=== PATIENT | female | born 1985 | race Caucasian/White ===

== ENCOUNTER 2022-07-06 05:02 | Emergency (ER) | payer SELFPAY ==
[2022-07-06 05:14] VITALS: BP 113/75; PULSE 70; RESP 16; TEMP 37.1; O2SAT 98
[2022-07-06] MEDS: KETOROLAC 15 MG/ML inj IVP (05:40)
[2022-07-06 05:46] LABS: Appearance Urine Clear (Clear); Bilirubin Urine Negative (Negative); Blood Urine Trace-intact (Negative); Color Urine Yellow (Yellow); Glucose Urine Negative (Negative); Ketones Urine Negative (Negative); Leukocyte Esterase Urine Negative (Negative); Nitrite Urine Negative (Negative); Protein Urine Negative (Negative); Specific Gravity Urine 1.015 (1.000-1.030); Urobilinogen Urine 0.2 (0.2-1.0)
[2022-07-06 05:48] LABS: Basophils Percent Auto 0.2 % (0.0-3.0); Eosinophils Percent Auto 0.9 % (0.0-7.0); Immature Granulocytes Abs Auto 0.02 K/uL (0.00-0.30); Lymphocytes Percent Auto 19.9 % (20-44); Mean Corpuscular HGB Conc 34 gm/dL (32-36); Mean Corpuscular Hemoglobin 30 pg (26-34); Mean Corpuscular Volume 89 fL (80-100); Monocytes Percent Auto 6.1 % (0.0-11.0); Neutrophils Percent Auto 72.8 % (42.0-72.0); Platelet Count* 340 K/uL (140-440); RDW Coefficient of Variation % 12.4 % (11.5-15.5); Red Blood Count 4.29 m/uL (4.00-5.20); White Blood Count* 15.31 K/uL (4.50-11.00)
[2022-07-06 05:53] LABS: Bacteria Urine Few; HCG Qualitative* Negative (Negative); RBC Urine 0-2 (0-2); Squamous Epithelial Cell Urine Few (None-Few); WBC Urine 0-2 (0-5)
[2022-07-06 06:00] LABS: Albumin* 4.4 g/dL (3.3-5.0); Chloride* 103 mmol/L (96-114)
[2022-07-06 06:01] LABS: Potassium* 3.6 mmol/L (3.6-5.1); Sodium* 136 mmol/L (135-149)
[2022-07-06 06:03] LABS: Alkaline Phosphatase* 142 U/L (40-150); Aspartate Amino Transferase* 72 U/L (12-35); Bilirubin Total* 0.3 mg/dL (0.1-1.5); Carbon Dioxide* 24 mmol/L (20-32); Creatinine* 0.6 mg/dL (0.5-1.5); Estimated Glomerular Filt Rate 120 ml/min; Lipase* 77 U/L (23-300); Total Protein* 7.2 g/dL (6.0-8.3)
[2022-07-06 06:04] LABS: Alanine Aminotransferase* 53 U/L (4-35); Blood Urea Nitrogen* 20 mg/dL (5-24); Calcium* 8.5 mg/dL (8.4-10.6); Glucose* 101 mg/dL (60-115)
[2022-07-06 06:06] LABS: C Reactive Protein* 2.3 mg/dL (0.5-1.0)
--- NOTE | 2022-07-06 06:08 | CRLHL7_ITS ---
For Patients: As a result of the Century Cures Act, medical imaging exams and procedure reports are released immediately into your electronic medical record. You may view this report before your referring provider. If you have questions, please contact your health care provider. INDICATION: Pelvic pain with history of ovarian cysts. COMPARISON: There are no prior studies for comparison TECHNIQUE: CT examination of the abdomen and pelvis was performed following the uneventful intravenous administration of 53 cc of Isovue 370. Thin section axial images were obtained from the lung bases through the pubic symphysis. Oral contrast was not administered. Please note that all CT scans at this facility use dose modulation, iterative reconstruction, and/or weight-based dosing when appropriate to reduce radiation dose to as low as reasonably achievable. FINDINGS: LUNG BASES: The lung bases as visualized appear normal.The heart size is normal at the lung bases. LIVER/BILIARY SYSTEM:The liver is normal in size and configuration. There is no focal mass and there is no intra- or extra hepatic biliary ductal dilatation.The gall bladder appears normal. ADRENALS: Normal KIDNEYS, URETERS and BLADDER:The kidneys appear normal. No visible mass, calculus or hydronephrosis. The ureters and bladder as visualized appear normal. SPLEEN:Normal appearance. PANCREAS: Appears normal. RETROPERITONEUM and MESENTERY: There is no mass, adenopathy or aortic aneurysm. GASTROINTESTINAL SYSTEM: Acute uncomplicated sigmoid diverticulitis. The loop that is involved is located deep in the pelvis towards the left. There is mild regional fluid. No collection free air. Appendix was seen and appears normal. PELVIS: Myomatous uterus..No adnexal mass identified by CT OSSEOUS STRUCTURES and ABDOMINAL WALL: There is an age-appropriate appearance of the osseous structures.No significant abdominal wall defect. IMPRESSION: Acute uncomplicated sigmoid diverticulitis. Other nonacute appearing findings as above. Please note that all CT scans at this facility use dose modulation, iterative reconstruction, and/or weight-based dosing when appropriate to reduce radiation dose to as low as reasonably achievable. Dictated by Carroll Skinner MD @ 07/06/2022 7:32:58 AM (Electronically Signed)
[2022-07-06 06:14] LABS: Slide Review Reflex No
--- NOTE | 2022-07-06 06:18 | ED.ABDPAIN ---
HPI - Abdominal Pain General Chief Complaint: Abdominal Pain Stated Complaint: Stomach ache Time Seen by Provider: 07/06/22 05:06 Source: patient and grain elevator worker Mode of arrival: ambulatory Limitations: language barrier History of Present Illness HPI narrative: 36-year-old female presents with a 9 hour history of suprapubic/pelvic area abdominal pain, constant, rating it as 9/10. Not accompanied by nausea, vomiting, diarrhea. Last bowel movement was 3 hours ago, solid, uncomplicated. Denies any blood in her stools, no dysuria, no vaginal discharge. Denies hematuria, fevers. Does feel sweaty when the pain is worse. She is mildly nauseated but denies any vomiting. She tried taking some Tylenol with no significant improvement in her symptoms. The pain radiates to both hips. No flank pain. Last menstrual period was 06/21/2022. It is not affected by food. Pain is similar to when she was diagnosed with ovarian cysts in the past. No recent trauma or injury. Past medical history she states is benign, no major long-term health problems, no long-term medications, no allergies. Her surgical history is notable for 3 prior C-sections. Socially, nonsmoker, no recent pertinent travel or illicit substances. ROS is notable for the intra-abdominal symptoms as above, otherwise negative times 12 systems. Related Data Previous Rx's Medication Instructions Recorded levofloxacin 500 mg tablet 500 mg PO DAILY #10 tabs 07/06/22 metronidazole 500 mg tablet 500 mg PO Q12H #20 tabs 07/06/22 oxycodone 5 mg tablet 2.5 - 5 mg PO Q6H PRN Severe pain 07/06/22 not relieved by Tylenol or ibuprofen #10 tabs Allergies Allergy/AdvReac Type Severity Reaction Status Date / Time No Known Drug Allergies Allergy Verified 07/06/22 05:16 [facility] Social History Smoking Status: Never smoker Do you use any of these nicotine containing products: None How often do you have a drink containing alcohol: never AUDIT-C Alcohol total score: 0 Non-prescribed substance use: denies use Exam Const: Vital Signs, click to edit/add: Vital Signs - 24 hr 07/06/22 05:14 07/06/22 07:48 Temperature 98.7 F Pulse Rate [Left P ulse Oximeter] 70 67 Respiratory Rate 16 18 Blood Pressure [[place] Upper Arm] 113/75 108/65 Pulse Oximetry 98 99 Oxygen Delivery Me thod Room Air Documenting provider has reviewed patient's vital signs: yes Common normals: no apparent distress General appearance: cooperative HENMT: Common normals: normocephalic Head and scalp: normocephalic Mouth: oral and palatal mucosa normal Throat: posterior oropharynx normal Eye: Common normals: conjunctivae normal and no scleral icterus Conjunctiva: conjunctiva(e) normal Neck & C-Spine: Common normals: full ROM and no lymphadenopathy Resp: Common normals: normal respiratory effort, no use of accessory muscles and clear to auscultation bilaterally Effort & inspection: able to speak in complete sentences Auscultation: clear to auscultation bilaterally Cardio: Common normals: regular rhythm, S1 normal heart sound, S2 normal heart sound, no murmurs and peripheral pulses 2+ throughout Rhythm: regular rhythm Heart sounds: S1 normal and S2 normal Peripheral pulses: pulses 2+ throughout GI: Other: Abdomen appears nondistended. Bowel sounds are normoactive. She is exquisitely tender to palpation of the suprapubic, right and left lower quadrants. There is no guarding. No mass, no hernia, no hepatosplenomegaly. : Common normals: no CVA tenderness Bladder/kidney exam: no CVA tenderness Back & Pelvis: Common normals: no CVA tenderness Extremity: Common normals: normal to inspection, normal capillary refill and no pedal edema Neuro: Speech: speech normal Motor exam: no tremor noted and no movement abnormalities noted Psych: Common normals: speech normal Attitude: engaged Speech: normal speech Mood and affect: euthymic mood Insight: insight good Judgement: judgment good Skin: Common normals: no rashes or lesions noted General skin exam: no rashes or lesions noted Course Vital Signs Vital signs: Initial Vital Signs Temperature 98.7 F 07/06/22 05:14 Temperature Source Temporal Artery Scan 07/06/22 05:14 Pulse Rate 70 07/06/22 05:14 Pulse Rhythm 07/06/22 05:14 Respiratory Rate 16 07/06/22 05:14 Blood Pressure 113/75 07/06/22 05:14 Blood Pressure Mean 87 07/06/22 05:14 Blood Pressure Position Sitting 07/06/22 05:14 Pulse Oximetry 98 07/06/22 05:14 Oxygen Delivery Method 07/06/22 05:14 Vital Signs Temperature 98.7 F 07/06/22 05:14 Pulse Rate 70 07/06/22 05:14 Respiratory Rate 16 07/06/22 05:14 Blood Pressure 113/75 07/06/22 05:14 Pulse Oximetry 98 07/06/22 05:14 Oxygen Delivery Method 07/06/22 05:14 Temperature 98.7 F 07/06/22 05:14 Pulse Rate 67 07/06/22 07:48 Respiratory Rate 18 07/06/22 07:48 Blood Pressure 108/65 07/06/22 07:48 Pulse Oximetry 99 07/06/22 07:48 Oxygen Delivery Method 07/06/22 05:14 MDM - Abdominal Pain MDM Narrative Medical decision making narrative: Negative test reviewed. Differential diagnoses including diverticulitis, appendicitis, ovarian torsion, ovarian cyst, pelvic infection, bowel obstruction, incarcerated hernia, volvulus, multiple others. IV will be placed she will be given 15 mg of Toradol. Trace amount of blood noted in the urine, uncertain clinical significance. Still low risk for renal stone. Labs ordered, CT scan ordered. Await findings. CT scan findings reviewed, notable for uncomplicated acute diverticulitis per Radiology interpretation. In patient on levofloxacin and metronidazole, discharge plan discussed. She reports that her pain was not adequately controlled with the Toradol, will be given 5 mg of oral oxycodone. Risks and benefits discussed with patient. Discussed the need for an outpatient colonoscopy in 6 weeks and follow up with primary care provider in 2 days to determine if the plan of care is working. Discussed the chance of antibiotic failure, fevers, signs of sepsis, weakness, etc. would warrant earlier repeat evaluation. She verbalizes understanding and agreement Differential Diagnosis Differential diagnosis: Likely abdominal pain, acute appendicitis, calculus of kidney, constipation, diverticulitis, endometriosis, gastroenteritis, pancreatitis and small bowel obstruction Lab Data Attestation: I reviewed the patient's lab results. Labs: Lab Results 07/06/22 07/06/22 07/06/22 Range/Units 05:35 05:43 05:43 WBC 15.31 H (4.50-11.00) K/uL RBC 4.29 (4.00-5.20) m/uL Hgb 13.0 (12.0-16.0) gm/dL Hct 38.0 (33.0-51.0) % MCV 89 (80-100) fL MCH 30 (26-34) pg MCHC 34 (32-36) gm/dL RDW Coeff of René 12.4 (11.5-15.5) % Plt Count 340 (140-440) K/uL Neut % (Auto) 72.8 H (42.0-72.0) % Lymph % (Auto) 19.9 L (20-44) % [place] % (Auto) 6.1 (0.0-11.0) % Eos % (Auto) 0.9 (0.0-7.0) % Baso % (Auto) 0.2 (0.0-3.0) % Neut # (Auto) 11.10 H (1.7-7.0) K/uL Lymph # (Auto) 3.00 H (0.90-2.90) K/uL [place] # (Auto) 0.90 (0.00-0.90) K/UL Eos # (Auto) 0.10 (0.00-0.50) K/uL Baso # (Auto) 0.00 (0.00-0.30) K/uL Abs Immat Gran (auto) 0.02 (0.00-0.30) K/uL Sodium 136 (135-149) mmol/L Potassium 3.6 (3.6-5.1) mmol/L Chloride 103 (96-114) mmol/L Carbon Dioxide 24 (20-32) mmol/L BUN 20 (5-24) mg/dL Creatinine 0.6 (0.5-1.5) mg/dL Estimated GFR 120 ml/min Glucose 101 (60-115) mg/dL Calcium 8.5 (8.4-10.6) mg/dL Total Bilirubin 0.3 (0.1-1.5) mg/dL AST 72 H (12-35) U/L ALT 53 H (4-35) U/L Alkaline Phosphatase 142 (40-150) U/L C-Reactive Protein 2.3 H (0.5-1.0) mg/dL Total Protein 7.2 (6.0-8.3) g/dL Albumin 4.4 (3.3-5.0) g/dL Lipase 77 (23-300) U/L HCG, Qual Negative (Negative) Urine Color Yellow (Yellow) Urine Appearance Clear (Clear) Urine pH 6.0 (5.0-8.5) Ur Specific [place] 1.015 (1.000-1.030) Urine Protein Negative (Negative) Urine Glucose (UA) Negative (Negative) Urine Ketones Negative (Negative) Urine Blood Trace-intact A (Negative) Urine Nitrite Negative (Negative) Urine Bilirubin Negative (Negative) Urine Urobilinogen 0.2 (0.2-1.0) Ur Leukocyte Esterase Negative (Negative) Urine RBC 0-2 (0-2) Urine WBC 0-2 (0-5) Ur Squamous Epith Cells Few (None-Few) Urine Bacteria Few A (None) Discharge Plan Discharge Clinical Impression: Diverticulitis Patient Disposition: Home w/ Parent or Adult Condition: Improved Instructions: Diverticulitis (ED) Additional Instructions: You have an infection in your lower colon Called diverticulitis. This is a common infection. Occasionally, it does feel to respond to oral antibiotics and may need more aggressive treatment. Signs of this would be persistent fevers, severe pain, vomiting or severe weakness and a couple of days from now. I would like to start you on 2 antibiotics, levofloxacin and metronidazole. Please make a followup appointment with her primary care provider in 3-4 days. For recheck. Your primary care provider will also need to set you up for a colonoscopy in 6 weeks to look to make sure and there is not a more dangerous etiology for your diverticulitis. It is okay to take Tylenol and ibuprofen as needed for pain, in fact we would prefer that you do this. I will also give you a limited supply of oxycodone to use for severe pain if needed but please try to use these sparingly. They have significantly more side effects as we discussed. Come back to the ED if you are having severe fever, weakness or severe increase in pain. Activity Level: No strenuous activity Activity Detail: No work today or tomorrow, may return to as normal on Wednesday. Discharge Diet: Regular Prescriptions: New levofloxacin 500 mg tablet 500 mg PO DAILY Qty: 10 0RF Rx Instructions: Begin morning of 07/07/2022 metronidazole 500 mg tablet 500 mg PO Q12H Qty: 20 0RF Rx Instructions: Next dose 07/06/2022 evening oxycodone 5 mg tablet 2.5 - 5 mg PO Q6H PRN (Reason: Severe pain not relieved by Tylenol or ibuprofen) Qty: 10 0RF Follow Up/Referrals: Ana Maria Hair MD [Primary Care Provider] - 2 Days Stand Alone Forms: SeeChange Health Info Instructions
[2022-07-06 07:48] VITALS: BP 108/65; PULSE 67; RESP 18; O2SAT 99
--- NOTE | 2022-07-06 07:49 | ED.NURSE ---
care taken over, pt back from ct. grave digger used to assess pt. pt denies pain at this time. states it comes and goes. dr. navarrete in seeing pt while grave digger on ipad.
[2022-07-06] MEDS: OXYCODONE 5 MG TABLET PO (08:02)
[2022-07-06] MEDS: levoFLOXacin 500 MG TABLET PO (08:02)
[2022-07-06] MEDS: metroNIDAZOLE 500 MG TABLET PO (08:03)
--- NOTE | 2022-07-06 08:12 | ED.NURSE ---
dc teaching complete via tax map technician ipad
== END 2022-07-06 08:12 | disposition home or self-care (01) ==
PROVIDERS: Emergency Provider Family Medicine; PCP Family Medicine
DX: K57.92 Diverticulitis of intestine, part unspecified, without perforation or abscess without bleeding (principal)
CPT/HCPCS: 36415; 74177; 80053; 81003; 81015; 83690; 84703; 85025; 86140; 87086; 96374; 99283; 99284; A9270; J1885; Q9967

== ENCOUNTER 2022-11-30 23:26 | Inpatient (IN) | payer SELFPAY ==
[2022-11-30 23:34] VITALS: BP 129/85; PULSE 91; RESP 16; TEMP 37.1; O2SAT 98
[2022-12-01] VITALS (7 sets, daily range): BP systolic 95–129; BP diastolic 57–85; PULSE 67–89; RESP 16–20; TEMP 36.4–36.9; O2SAT 97–99
--- NOTE | 2022-12-01 00:22 | ED.GENADULT ---
HPI - General Adult General Chief complaint: Abdominal Pain Stated complaint: Abdominal pain Time Seen by Provider: 12/01/22 00:05 Source: patient and family Mode of arrival: ambulatory Limitations: language barrier (Phone customer service manager used) History of Present Illness HPI narrative: 37-year-old female presents the emergency department suprapubic and bilateral lower abdominal pain for the past 3 days, worsening in nature. It is accompanied by nausea but no vomiting. Pain is increased with sitting down, with bearing down to have a bowel movement, urination. Does not really radiate. She is having some chills, body aches and headache but has not measured a fever. There is no dysuria, no vaginal discharge, no new sexual partners. Episode feel similar to pain she had in June. I review our records and see that she was diagnosed with diverticulitis. She reports that the antibiotics cleared up her infection but she did not scheduled a follow-up colonoscopy that was recommended. No problems since that time. She does have a history of GI surgery with 3 previous C-sections. She has a tubal for contraception. Had initially been using Tylenol with some improvement in her pain, no longer using since that did not help for the last 24 hours. Has not tried ibuprofen or Aleve. Past medical history with no major long-term health problems. She has had 3 previous C-sections and tubal ligation. Previous episode of diverticulitis in June. Socially she is a nonsmoker nondrinker with no pertinent travel. Family history is negative for colon cancers, stomach cancers, gynecological cancers and pancreatitis. Denies allergies ROS is notable for the generalized and GI symptoms as above, otherwise denies times 12 systems. Related Data Home Medications Medication Instructions Recorded Confirmed acetaminophen 500 mg capsule 500 mg PO Q6H PRN 11/30/22 11/30/22 Allergies Allergy/AdvReac Type Severity Reaction Status Date / Time No Known Drug Allergies Allergy Verified 07/06/22 05:16 [facility] Social History Smoking Status: Never smoker Do you use any of these nicotine containing products: None How often do you have a drink containing alcohol: never AUDIT-C Alcohol total score: 0 Non-prescribed substance use: denies use Exam Const: Vital Signs, click to edit/add: Vital Signs - 24 hr 11/30/22 23:34 Temperature 98.8 F Pulse Rate [Pulse Oximeter] 91 Respiratory Rate 16 Blood Pressure [[facility] Upper Arm] 129/85 Pulse Oximetry 98 Oxygen Delivery Me thod Room Air Documenting provider has reviewed patient's vital signs: yes Common normals: no apparent distress General appearance: cooperative Other: Appears mildly uncomfortable but is very pleasant, excellent historian. HENMT: Common normals: normocephalic Head and scalp: normocephalic Face and sinus: normal facial exam Mouth: oral and palatal mucosa normal Throat: posterior oropharynx normal Eye: Common normals: conjunctivae normal General eye: normal appearance of both eyes Conjunctiva: conjunctiva(e) normal Neck & C-Spine: Common normals: full ROM and no lymphadenopathy Resp: Common normals: normal respiratory effort, no use of accessory muscles and clear to auscultation bilaterally Effort & inspection: able to speak in complete sentences Auscultation: clear to auscultation bilaterally Cardio: Common normals: regular rate, regular rhythm, S1 normal heart sound, S2 normal heart sound, no murmurs and peripheral pulses 2+ throughout Rate: regular rate Rhythm: regular rhythm Heart sounds: S1 normal and S2 normal Peripheral pulses: pulses 2+ throughout GI: Other: Abdomen does not appear distended. Surgical scarring is consistent with the reported history. She is exquisitely tender in the suprapubic and left lower quadrant areas. There is some mild guarding as well. I do not appreciate any hepatosplenomegaly or masses. No hernia. : Common normals: no CVA tenderness Bladder/kidney exam: no CVA tenderness Back & Pelvis: Common normals: no CVA tenderness Extremity: Common normals: normal to inspection, normal capillary refill and no pedal edema Neuro: Speech: speech normal Motor exam: strength 5/5 throughout, no tremor noted and no movement abnormalities noted Psych: Attitude: engaged Activity/motor behavior: appropriate eye contact Insight: insight good Judgement: judgment good Skin: Common normals: no rashes or lesions noted General skin exam: no rashes or lesions noted Course Vital Signs Vital signs: Initial Vital Signs Temperature 98.8 F 11/30/22 23:34 Temperature Source Temporal Artery Scan 11/30/22 23:34 Pulse Rate 91 11/30/22 23:34 Pulse Rhythm Regular 11/30/22 23:34 Respiratory Rate 16 11/30/22 23:34 Blood Pressure 129/85 11/30/22 23:34 Blood Pressure Mean 99 11/30/22 23:34 Pulse Oximetry 98 11/30/22 23:34 Oxygen Delivery Method Room Air 11/30/22 23:34 Vital Signs Temperature 98.8 F 11/30/22 23:34 Pulse Rate 91 11/30/22 23:34 Respiratory Rate 16 11/30/22 23:34 Blood Pressure 129/85 11/30/22 23:34 Pulse Oximetry 98 11/30/22 23:34 Oxygen Delivery Method Room Air 11/30/22 23:34 Temperature 98.8 F 11/30/22 23:34 Pulse Rate 91 11/30/22 23:34 Respiratory Rate 16 11/30/22 23:34 Blood Pressure 129/85 11/30/22 23:34 Pulse Oximetry 98 11/30/22 23:34 Oxygen Delivery Method Room Air 11/30/22 23:34 Medical Decision Making MDM Narrative Medical decision making narrative: Different diagnosis highest for diverticulitis, cannot exclude colitis, ovarian cyst, kidney stone, UTI, other GI abnormalities. I recommended CT scan, labs. Because of her poor oral intake the last few days, will bolus 1 L of LR and 4 mg of Zofran with 15 mg of Toradol for additional pain control. Can increased pain medication to narcotics if needed. Phone customer service manager use, all questions answered. Update: Patient reporting moderate improvement of her pain with the Toradol. I offer stronger pain medication but do let her know it will have more side effects, she is agreeable to holding off on that for now. Reviewed the CT findings. Patient with signs of phlegmon verses early perforation. Recommend hospitalization, IV ertapenem and p.o.. I am not going to call the surgeon at 2:00 a.m. since this is not a surgical emergency that she will need a surgical consult in the daylight hours. Awaiting call back from hospitalist. Update: It did take an hour and 20 minutes for me to get a call back from the e hospitalist physician. Admission accepted. I will call the surgeon in the daylight hours to let her know of the consult. It is not needed to call them at 3:00 a.m. as she does not need emergent surgical management. Requests that she be seen today. Lab Data Lab results reviewed: Yes I reviewed the patient's lab results Lab results narrative: Elevated CRP, leukocytosis Labs: Lab Results 12/01/22 12/01/22 12/01/22 Range/Units 00:32 00:36 02:05 WBC 13.51 H (4.50-11.00) K/uL RBC 4.19 (4.00-5.20) m/uL Hgb 12.9 (12.0-16.0) gm/dL Hct 37.9 (33.0-51.0) % MCV 91 (80-100) fL MCH 31 (26-34) pg MCHC 34 (32-36) gm/dL RDW Coeff of René 12.2 (11.5-15.5) % Plt Count 381 (140-440) K/uL Neut % (Auto) 75.3 H (42.0-72.0) % Lymph % (Auto) 17.1 L (20-44) % [place] % (Auto) 5.4 (0.0-11.0) % Eos % (Auto) 0.7 (0.0-7.0) % Baso % (Auto) 0.2 (0.0-3.0) % Neut # (Auto) 10.20 H (1.7-7.0) K/uL Lymph # (Auto) 2.30 (0.90-2.90) K/uL [place] # (Auto) 0.70 (0.00-0.90) K/UL Eos # (Auto) 0.10 (0.00-0.50) K/uL Baso # (Auto) 0.00 (0.00-0.30) K/uL Sodium 137 (135-149) mmol/L Potassium 3.6 (3.6-5.1) mmol/L Chloride 102 (96-114) mmol/L Carbon Dioxide 27 (20-32) mmol/L BUN 17 (5-24) mg/dL Creatinine 0.7 (0.5-1.5) mg/dL Estimated GFR 115 ml/min Glucose 104 (60-115) mg/dL Lactate 0.7 (0.5-1.9) mmol/L Calcium 9.1 (8.4-10.6) mg/dL Total Bilirubin 0.3 (0.1-1.5) mg/dL AST 75 H (12-35) U/L ALT 92 H (4-35) U/L Alkaline Phosphatase 230 H (40-150) U/L C-Reactive Protein 5.7 H (0.5-1.0) mg/dL Total Protein 7.7 (6.0-8.3) g/dL Albumin 4.4 (3.3-5.0) g/dL HCG, Qual Negative (Negative) Urine Color Yellow (Yellow) Urine Appearance Clear (Clear) Urine pH 7.0 (5.0-8.5) Ur Specific [place] 1.020 (1.000-1.030) Urine Protein Negative (Negative) Urine Glucose (UA) Negative (Negative) Urine Ketones Negative (Negative) Urine Blood Trace-intact A (Negative) Urine Nitrite Negative (Negative) Urine Bilirubin Negative (Negative) Urine Urobilinogen 0.2 (0.2-1.0) Ur Leukocyte Esterase Negative (Negative) Urine RBC 0-2 (0-2) Urine WBC 0-2 (0-5) Ur Squamous Epith Cells Few (None-Few) Urine Bacteria None (None) SARS-CoV-2 (PCR) Negative SARS-CoV-2 (Negative) Imaging Data CT scan - abdomen: My impression: Diverticulitis with questionable perforation. Radiologist's impression: IMPRESSION: 1. Acute sigmoid diverticulitis with phlegmon or less likely developing abscess along the leftward aspect of the sigmoid colon. 2. Fibroid uterus. Discharge Plan Discharge Clinical Impression: Diverticulitis of large intestine with complication Patient Disposition: Admitted As Inpatient
--- NOTE | 2022-12-01 00:27 | CRLHL7_ITS ---
For Patients: As a result of the Century Cures Act, medical imaging exams and procedure reports are released immediately into your electronic medical record. You may view this report before your referring provider. If you have questions, please contact your health care provider. INDICATION: Left lower quadrant pain. TECHNIQUE: CT abdomen and pelvis acquired with 69 cc Isovue 370 IV contrast. COMPARISON: CT abdomen pelvis 07/06/2022. FINDINGS: Lower chest: Unremarkable. Liver: Unremarkable. Normal in size and attenuation. No suspicious masses. Gallbladder and bile ducts: Contracted gallbladder. No stones or inflammation. No biliary ductal dilatation. Spleen: Unremarkable. Normal in size. No masses. Adrenal glands: Unremarkable. No nodules. Pancreas: Unremarkable. No mass or inflammation. Kidneys: Unremarkable. No suspicious masses, stones, or hydronephrosis. GI tract: Few colonic diverticula. Wall thickening of the sigmoid colon with surrounding fat stranding. Low density collection along the leftward aspect of the sigmoid colon measuring 2.0 x 1.6 cm. No evidence of obstruction. Normal appendix. Lymph nodes: No lymphadenopathy. Vasculature: Unremarkable. Omentum/Peritoneum/Abdominal Wall: Trace free fluid in the pelvis. No free air. Pelvis: Multiple uterine fibroids. Bones: Unremarkable for age. IMPRESSION: 1. Acute sigmoid diverticulitis with phlegmon or less likely developing abscess along the leftward aspect of the sigmoid colon. 2. Fibroid uterus. Please note that all CT scans at this facility use dose modulation, iterative reconstruction, and/or weight-based dosing when appropriate to reduce radiation dose to as low as reasonably achievable. Dictated by Lee Kolb MD @ 12/01/2022 1:44:16 AM (Electronically Signed)
[2022-12-01] MEDS: LACTATED RINGERS 1000 ML 1,000 ML IV (00:37)
[2022-12-01] MEDS: KETOROLAC 15 MG/ML inj IVP (00:37)
[2022-12-01] MEDS: ONDANSETRON 2 MG/ML inj 4 MG IVP (00:37)
[2022-12-01 00:42] LABS: Lactate* 0.7 mmol/L (0.5-1.9)
[2022-12-01 00:43] LABS: Basophils Percent Auto 0.2 % (0.0-3.0); Eosinophils Percent Auto 0.7 % (0.0-7.0); Hematocrit 37.9 % (33.0-51.0); Hemoglobin* 12.9 gm/dL (12.0-16.0); Immature Granulocytes Pct Auto 1.3 %; Lymphocytes Percent Auto 17.1 % (20-44); Mean Corpuscular HGB Conc 34 gm/dL (32-36); Mean Corpuscular Hemoglobin 31 pg (26-34); Mean Corpuscular Volume 91 fL (80-100); Monocytes Percent Auto 5.4 % (0.0-11.0); Neutrophils Percent Auto 75.3 % (42.0-72.0); Platelet Count* 381 K/uL (140-440); RDW Coefficient of Variation % 12.2 % (11.5-15.5); Red Blood Count 4.19 m/uL (4.00-5.20); White Blood Count* 13.51 K/uL (4.50-11.00)
[2022-12-01 00:47] LABS: Appearance Urine Clear (Clear); Bilirubin Urine Negative (Negative); Blood Urine Trace-intact (Negative); Color Urine Yellow (Yellow); Glucose Urine Negative (Negative); Ketones Urine Negative (Negative); Leukocyte Esterase Urine Negative (Negative); Nitrite Urine Negative (Negative); Protein Urine Negative (Negative); Urobilinogen Urine 0.2 (0.2-1.0)
[2022-12-01 00:50] LABS: Slide Review Reflex No
[2022-12-01 00:58] LABS: Albumin* 4.4 g/dL (3.3-5.0); Chloride* 102 mmol/L (96-114); Sodium* 137 mmol/L (135-149)
[2022-12-01 00:59] LABS: Potassium* 3.6 mmol/L (3.6-5.1)
[2022-12-01 01:01] LABS: Creatinine* 0.7 mg/dL (0.5-1.5); Estimated Glomerular Filt Rate 115 ml/min
[2022-12-01 01:01] LABS: RBC Urine 0-2 (0-2); Squamous Epithelial Cell Urine Few (None-Few); WBC Urine 0-2 (0-5)
[2022-12-01 01:02] LABS: Alanine Aminotransferase* 92 U/L (4-35); Alkaline Phosphatase* 230 U/L (40-150); Aspartate Amino Transferase* 75 U/L (12-35); Bilirubin Total* 0.3 mg/dL (0.1-1.5); Blood Urea Nitrogen* 17 mg/dL (5-24); Calcium* 9.1 mg/dL (8.4-10.6); Carbon Dioxide* 27 mmol/L (20-32); Glucose* 104 mg/dL (60-115); Total Protein* 7.7 g/dL (6.0-8.3)
[2022-12-01 01:02] LABS: HCG Qualitative* Negative (Negative)
[2022-12-01 01:04] LABS: C Reactive Protein* 5.7 mg/dL (0.5-1.0)
[2022-12-01] MEDS: ERTAPENEM 1 GM in 0.9 % SODIUM CHLORIDE Mini-bag 100 ML IVPB (01:50)
[2022-12-01 02:45] LABS: SARS PCR* Negative SARS-CoV-2 (Negative)
[2022-12-01] MEDS: LACTATED RINGERS 1000 ML 1,000 ML 125 ML IV ×3 (02:55→19:23)
--- NOTE | 2022-12-01 03:18 | ED.NURSE ---
report given to chika CATHERINEplastic surgery manager
[2022-12-01] MEDS: MORPHINE 4 MG/ML INJ 2 MG IVP (05:28)
--- NOTE | 2022-12-01 06:39 | PC.NURSE ---
Addendum entered by Ciara Rodriguez 12/01/22 07:09: Pt was up to floor at 0320. Yaakov assessed pt at 0500. Verbal orders were given for a one time dose of IVP morphine for pt's abdominal pain. Original Note: Pt is alert and oriented x3. Afebrile. Pt reports pain 9/10 in lower abdomen, pain managed with PRN morphine. Pt abdomen is tender to touch. Pt bowel sounds are present and active in all 4 quadrants,?pt is voiding and reported having a BM before coming to hospital. Pt denies chest pain, SOB, and N/V. Pt is up IND in room, tolerating an NPO diet with sips and chips. Pt slept intermittently?throughout night.?
--- NOTE | 2022-12-01 07:27 | P.IMHP_ITS ---
Hospitalist- H&P: HPI History of Present Illness Date Seen: 12/01/22 Chief complaint: Abdominal pain Narrative: ADMISSION HISTORY AND PHYSICAL - HOSPITALIST Chief Complaint: Abdominal pain HPI: 2-3 days being abdominal pain. 37-year-old , Mohawk-speaking, mother of 3. Otherwise healthy. Has had 3 C sections. Pain is lower abdominal. Left and right of midline. No radiation to her back. No nausea or vomiting. Has a history of diverticulitis in June of 2022. Did not follow up with her colonoscopy as instructed. This was outpatient treatment. ER COURSE: CT abdomen pelvis Labs IV fluids and IV antibiotics CODE STATUS: FULL CODE EMERGENCY CONTACT PLAN: , [place], at [phone] I've updated the PFSH, medications and allergies in the [facility]se tabs. INVESTIGATIONS: LABS/MICRO/ECG/IMAGING T-max 98.3? F 129/85 Pulse rate 80s Respiratory rate 18 to 20, unlabored Pulse ox 98% on room air 50.5 kilos CBC reveals a leukocytosis of 13.5, 75.3% neutrophils Hemoglobin is normal at 12.9, platelets are normal at 381 C reactive protein 5.7 Alk-phos 230 with mildly elevated AST and ALT at 75/92 Pancreatic enzymes were not checked. HCG negative Otherwise unremarkable chemistry panel. Urine unremarkable No blood or urine cultures pending Abdominal pelvic CT 1. Acute sigmoid diverticulitis with phlegmon or less likely developing abscess along the leftward aspect of the sigmoid colon. 2. Fibroid uterus. REVIEW OF SYSTEMS: 12-point ROS completed with patient and negative unless otherwise stated in HPI or below. PHYSICAL EXAM: CONSTITUTIONAL: Somewhat of a flat affect. She appears tired. No acute distress. VITAL SIGNS: see record. HEENT: Normocephalic, atraumatic. PERRL, EOMI, conjunctivae pink, no scleral icterus. Ears and nose externally normal. Pharynx normal. NECK: No JVD. No carotid bruit, no thyromegaly, no adenopathy. CHEST: Clear to auscultation bilaterally HEART: S1 and S2 normal. No harsh murmurs. ABDOMEN: Bowel sounds present. No rebound tenderness. Tender moderately with palpation in the left and right lower quadrants. No CVA tenderness. MUSCULOSKELETAL: No gross joint deformity or swelling. NEURO: Cranial nerves intact. Grossly intact. No asymmetric findings. SKIN: No rashes, petechiae, concerning changes PSYCHIATRIC: Euthymic. ADMIT TO MEDSURG: FLOOR CARE DVT: Lovenox- hold for possible surgery, SCDs GI: Ppi Time spent: 70 minutes examining patient, conferring with family and patient, care staff, developing care plan [facility] Medical History (Updated 12/01/22 @ 10:36 by Xiomy Turner MD) History of diverticulitis ?Z87.19 - Personal history of other diseases of the digestive system (ICD-10) Surgical History (Updated 12/01/22 @ 07:37 by Xiomy Turner MD) Delivery by section Social History Smoking Status: Never smoker Do you use any of these nicotine containing products: None How often do you have a drink containing alcohol: never AUDIT-C Alcohol total score: 0 Non-prescribed substance use: denies use Caffeine: Yes service: No Meds Home Medications and Allergies Home Medications Medication Instructions Recorded Confirmed Type acetaminophen 500 mg capsule 500 mg PO Q6H PRN 11/30/22 11/30/22 History Allergies Allergy/AdvReac Type Severity Reaction Status Date / Time No Known Drug Allergies Allergy Verified 07/06/22 05:16 Exam Const: Vital Signs, click to edit/add: Vital Signs - 24 hr 11/30/22 23:34 12/01/22 03:21 12/01/22 03:32 Temperature 98.8 F 98.3 F Pulse Rate [Pulse Oximeter] 91 89 Respiratory Rate 16 20 18 Blood Pressure [Ri ght Upper Arm] 129/85 129/85 Pulse Oximetry 98 98 99 Oxygen Delivery Me thod Room Air Room Air Room Air 12/01/22 03:32 Temperature Pulse Rate [Pulse Oximeter] Respiratory Rate 20 Blood Pressure [Ri ght Upper Arm] Pulse Oximetry 98 Oxygen Delivery Me thod Room Air Hospitalist - H&P: Result Labs Labs: Short CBC 12/01/22 Range/Units 00:32 WBC 13.51 H (4.50-11.00) K/uL Hgb 12.9 (12.0-16.0) gm/dL Hct 37.9 (33.0-51.0) % Plt Count 381 (140-440) K/uL BMP 03/28/23 00:32 Sodium 137 Potassium 3.6 Chloride 102 Carbon Dioxide 27 BUN 17 Creatinine 0.7 Glucose 104 Calcium 9.1 Liver Function 12/01/22 Range/Units 00:32 Total Bilirubin 0.3 (0.1-1.5) mg/dL AST 75 H (12-35) U/L ALT 92 H (4-35) U/L Alkaline Phosphatase 230 H (40-150) U/L Albumin 4.4 (3.3-5.0) g/dL Urine 12/01/22 Range/Units 00:36 Urine Color Yellow (Yellow) Urine Appearance Clear (Clear) Urine pH 7.0 (5.0-8.5) Ur Specific [place] 1.020 (1.000-1.030) Urine Protein Negative (Negative) Urine Glucose (UA) Negative (Negative) Assessment and Plan Assessment and plan (1) Diverticulitis of large intestine with complication: Problem comment: -ertapenem IV, 1 g Q 24. First dose was 2:00 a.m. 12/01/2022 -surgical consult -pain management, nausea management -holding Lovenox, SCDs -IV PPI -NPO Status: Acute (2) History of diverticulitis: Problem comment: June 2022, outpatient treatment Status: Acute
[2022-12-01 08:02] LABS: Lipase* 80 U/L (23-300)
[2022-12-01 08:20] LABS: Procalcitonin* 0.05 ng/mL (<0.50)
[2022-12-01] MEDS: MORPHINE 2 MG/ML inj IVP (08:28)
[2022-12-01] MEDS: PANTOPRAZOLE SODIUM 40 MG INJ IVP (11:24)
--- NOTE | 2022-12-01 14:11 | PC.NURSE ---
End of shift: Patient A&O. VS WNL. Rating pain a 0-10/10. PRN morphine given with relief. Manager Supplier ipad used when in-person park interpreter was not available. Offered water and ice chips, patient aware to try clears this afternoon. Resting comfortably in bed.
[2022-12-01] MEDS: KETOROLAC 30 MG/ML inj IVP (15:22)
[2022-12-01 15:32] LABS: Basophils Percent Auto 0.2 % (0.0-3.0); Eosinophils Percent Auto 0.4 % (0.0-7.0); Hematocrit 34.5 % (33.0-51.0); Hemoglobin* 11.6 gm/dL (12.0-16.0); Immature Granulocytes Pct Auto 0.4 %; Lymphocytes Percent Auto 16.7 % (20-44); Mean Corpuscular HGB Conc 34 gm/dL (32-36); Mean Corpuscular Hemoglobin 30 pg (26-34); Mean Corpuscular Volume 91 fL (80-100); Monocytes Percent Auto 5.8 % (0.0-11.0); Neutrophils Percent Auto 76.5 % (42.0-72.0); Platelet Count* 350 K/uL (140-440); RDW Coefficient of Variation % 12.4 % (11.5-15.5); Red Blood Count 3.81 m/uL (4.00-5.20); White Blood Count* 11.34 K/uL (4.50-11.00)
[2022-12-01 15:48] LABS: Slide Review Reflex No
--- NOTE | 2022-12-01 16:59 | P.GSCN_ITS ---
History of Present Illness Consult details Date Seen: 12/01/22 Consult date: 12/01/22 Narrative: Patient presented to the emergency department with a 4-day history of worsening lower abdominal pain. She states that the pain started on Wednesday and was similar to her previous episode of diverticulitis. However, over the weekend the pain did not go away and increased in intensity, which prompted her to come in. Her previous episode of diverticulitis was in June 2022, which was CT documented as uncomplicated and controlled with antibiotics as an outpatient. At that time she was recommended to follow-up with a diagnostic colonoscopy, but has not had one yet. She denies any family history of diverticular disease. No family history of colon cancer. She has continued to have bowel movements, with last bowel movement yesterday morning. Denies any nausea or vomiting. She does think that she was having fevers over the weekend, but none since being in the hospital. Her surgical history is positive for x3. Patient was interviewed with the help of an in person rail bender. Review of Systems Status of ROS: Reports: 6 or more systems reviewed and unremarkable except as noted in History and below [facility], [facility] Medical History (Updated 12/01/22 @ 10:36 by Xiomy Turner MD) History of diverticulitis ?Z87.19 - Personal history of other diseases of the digestive system (ICD-10) Surgical History (Updated 12/01/22 @ 07:37 by Xiomy Turner MD) Delivery by section Social History Smoking Status: Never smoker Do you use any of these nicotine containing products: None How often do you have a drink containing alcohol: never AUDIT-C Alcohol total score: 0 Non-prescribed substance use: denies use Caffeine: Yes service: No Meds Home Medications and Allergies Home Medications Medication Instructions Recorded Confirmed Type acetaminophen 500 mg capsule 500 mg PO Q6H PRN 11/30/22 11/30/22 History Allergies Allergy/AdvReac Type Severity Reaction Status Date / Time No Known Drug Allergies Allergy Verified 07/06/22 05:16 Exam Narrative: Exam Narrative: General: Alert and oriented, no acute distress. Nontoxic in appearance. Pulmonary: Equal breath rise bilaterally, maintained on room air CV: Well-perfused, no tachycardia Abdomen: Soft, tender to palpation suprapubic with some guarding, no rebound. No signs of peritonitis. Const: Vital Signs, click to edit/add: Vital Signs - 24 hr 11/30/22 23:34 12/01/22 03:21 12/01/22 03:32 Temperature 98.8 F 98.3 F Pulse Rate [Pulse Oximeter] 91 89 Respiratory Rate 16 20 18 Blood Pressure [Ri ght Arm] Blood Pressure [Ri ght Upper Arm] 129/85 129/85 Pulse Oximetry 98 98 99 Oxygen Delivery Me thod Room Air Room Air Room Air 12/01/22 03:32 12/01/22 07:35 12/01/22 11:00 Temperature 98.1 F 97.6 F Pulse Rate [Pulse Oximeter] 80 Respiratory Rate 20 16 16 Blood Pressure [Ri ght Arm] 111/66 97/60 Blood Pressure [Ri ght Upper Arm] Pulse Oximetry 98 99 98 Oxygen Delivery Me thod Room Air Room Air Room Air 12/01/22 15:00 Temperature 98.0 F Pulse Rate [Pulse Oximeter] 87 Respiratory Rate 16 Blood Pressure [Ri ght Arm] 101/59 L Blood Pressure [Ri ght Upper Arm] Pulse Oximetry 97 Oxygen Delivery Me thod Room Air Results Labs Labs: Abnormal lab results 12/01/22 12/01/22 12/01/22 Range/Units 00:32 00:36 15:14 WBC 13.51 H 11.34 H (4.50-11.00) K/uL RBC 3.81 L (4.00-5.20) m/uL Hgb 11.6 L (12.0-16.0) gm/dL Neut % (Auto) 75.3 H 76.5 H (42.0-72.0) % Lymph % (Auto) 17.1 L 16.7 L (20-44) % Neut # (Auto) 10.20 H 8.70 H (1.7-7.0) K/uL AST 75 H (12-35) U/L ALT 92 H (4-35) U/L Alkaline Phosphatase 230 H (40-150) U/L C-Reactive Protein 5.7 H (0.5-1.0) mg/dL Urine Blood Trace-intact A (Negative) Diabetes panel 12/01/22 Range/Units 00:32 Sodium 137 (135-149) mmol/L Potassium 3.6 (3.6-5.1) mmol/L Chloride 102 (96-114) mmol/L Carbon Dioxide 27 (20-32) mmol/L BUN 17 (5-24) mg/dL Creatinine 0.7 (0.5-1.5) mg/dL Glucose 104 (60-115) mg/dL Calcium 9.1 (8.4-10.6) mg/dL AST 75 H (12-35) U/L ALT 92 H (4-35) U/L Alkaline Phosphatase 230 H (40-150) U/L Total Protein 7.7 (6.0-8.3) g/dL Albumin 4.4 (3.3-5.0) g/dL Calcium panel 12/01/22 Range/Units 00:32 Calcium 9.1 (8.4-10.6) mg/dL Albumin 4.4 (3.3-5.0) g/dL Pituitary panel 12/01/22 Range/Units 00:32 Sodium 137 (135-149) mmol/L Potassium 3.6 (3.6-5.1) mmol/L Chloride 102 (96-114) mmol/L Carbon Dioxide 27 (20-32) mmol/L BUN 17 (5-24) mg/dL Creatinine 0.7 (0.5-1.5) mg/dL Glucose 104 (60-115) mg/dL Calcium 9.1 (8.4-10.6) mg/dL Adrenal panel 12/01/22 Range/Units 00:32 Sodium 137 (135-149) mmol/L Potassium 3.6 (3.6-5.1) mmol/L Chloride 102 (96-114) mmol/L Carbon Dioxide 27 (20-32) mmol/L BUN 17 (5-24) mg/dL Creatinine 0.7 (0.5-1.5) mg/dL Glucose 104 (60-115) mg/dL Calcium 9.1 (8.4-10.6) mg/dL Total Bilirubin 0.3 (0.1-1.5) mg/dL AST 75 H (12-35) U/L ALT 92 H (4-35) U/L Alkaline Phosphatase 230 H (40-150) U/L Total Protein 7.7 (6.0-8.3) g/dL Albumin 4.4 (3.3-5.0) g/dL All other labs normal. Imaging Abdomen CT scan report/results: report reviewed and image reviewed Assessment and Plan Assessment and plan (1) Diverticulitis of large intestine with complication: Problem comment: -ertapenem IV, 1 g Q 24. First dose was 2:00 a.m. 12/01/2022 -surgical consult -pain management, nausea management -holding Lovenox, SCDs -IV PPI -NPO Status: Acute Plan Patient is a 37-year-old female with her second documented attack of sigmoid diverticulitis. This episode has been complicated by formation of a phlegmon. I reviewed the CT images, no abscess is currently identified. She was admitted overnight and started on IV antibiotics. Since admission her vital signs have been stable. On exam she is appropriately tender suprapubic, no evidence of peritonitis. Extensive discussion was had regarding management options at this point. She does understand that although the risk of emergency surgery and formation of a colostomy is low, it may be necessary should she develop worsening abdominal pain or symptoms of sepsis. We also discussed that previous surgical teaching usually recommended resection on an elective basis after 2 attacks or even 1 attack in a young patient. Subsequent studies involving large numbers of patients have shown that the risk of a recurrent attack of diverticulitis requiring emergency surgery is extremely low. Therefore, no specific number of attacks for patient age absolutely mandates resection in most patients. However, certain exceptions to this approach include: Immunosuppression, obstruction, fistula formation, inability to exclude cancer, ongoing nagging symptoms of discomfort, increasingly frequent hospitalization or lifestyle issues. If an operation does become necessary for diverticulitis, the ultimate goal would be to perform an operation electively rather than as an emergency. This is something that we can discuss at further clinic follow-ups. I also reviewed with the patient that part of the recommended follow-up would be a colonoscopy. Ideally this would be performed 6 weeks after resolution of symptoms and be done to rule out cancer, as well as evaluate diverticular burden. At this time will plan to continue with IV antibiotics, trend fever/WBC curve and reevaluate tomorrow morning. Patient is okay for clear liquids. Please call with any acute clinical changes, questions or concerns.
--- NOTE | 2022-12-01 18:11 | PC.NURSE ---
PATIENT PLEASANT AND COOPERATIVE, ABD PAIN RATING 3-5/10 PRN TORADOL GIVEN WITH RELIEF, TOLERATING CLEAR LIQUID DIET NO NAUSEA OR VOMITING, FAMILY VISITED THIS AFTERNOON, UP IND WITH STEADY GAIT TO BATHROOM, ENCOURAGED PATIENT TO WALK HALLWAYS, HOOKER OPERATOR IPAD USED.
[2022-12-01] MEDS: OXYCODONE 5 MG TABLET PO (20:17)
[2022-12-02] VITALS (8 sets, daily range): BP systolic 103–122; BP diastolic 60–76; PULSE 71–82; RESP 16–18; TEMP 36.5–37; O2SAT 97–98; BMI 23.1
[2022-12-02] MEDS: OXYCODONE 5 MG TABLET PO ×4 (00:04→17:53)
[2022-12-02] MEDS: ERTAPENEM 1 GM in 0.9 % SODIUM CHLORIDE Mini-bag 100 ML IVPB (02:57)
[2022-12-02] MEDS: LACTATED RINGERS 1000 ML 1,000 ML 125 ML IV (02:58)
[2022-12-02 06:15] LABS: Ionized Calcium* 1.13 mmol/L (1.11-1.30)
[2022-12-02 06:27] LABS: Basophils Percent Auto 0.3 % (0.0-3.0); Eosinophils Percent Auto 0.3 % (0.0-7.0); Hematocrit 35.6 % (33.0-51.0); Hemoglobin* 12.1 gm/dL (12.0-16.0); Immature Granulocytes Pct Auto 0.3 %; Mean Corpuscular HGB Conc 34 gm/dL (32-36); Mean Corpuscular Hemoglobin 31 pg (26-34); Mean Corpuscular Volume 90 fL (80-100); Monocytes Percent Auto 4.6 % (0.0-11.0); Neutrophils Percent Auto 81.5 % (42.0-72.0); Platelet Count* 361 K/uL (140-440); RDW Coefficient of Variation % 12.2 % (11.5-15.5); Red Blood Count 3.97 m/uL (4.00-5.20)
[2022-12-02 06:30] LABS: Slide Review Reflex No
[2022-12-02 06:35] LABS: INR 0.96 (0.91-1.10); Prothrombin Time 13.4 Seconds
--- NOTE | 2022-12-02 06:38 | PC.NURSE ---
Pt is alert and oriented x3. Afebrile. Pt reports pain 6/10 in lower abdomen, pain managed with PRN oxycodone. Pt abdomen continues to be?tender to touch. Pt bowel sounds are present and active in all 4 quadrants,?pt is voiding. Pt denies chest pain, SOB, and N/V. Pt is up IND in room, tolerating a clear liquid?diet. Pt slept intermittently?throughout night.?
[2022-12-02 06:41] LABS: Chloride* 101 mmol/L (96-114)
[2022-12-02 06:42] LABS: Albumin* 3.7 g/dL (3.3-5.0); Sodium* 134 mmol/L (135-149)
[2022-12-02 06:45] LABS: Alanine Aminotransferase* 64 U/L (4-35); Alkaline Phosphatase* 160 U/L (40-150); Aspartate Amino Transferase* 36 U/L (12-35); Bilirubin Total* 0.3 mg/dL (0.1-1.5); Blood Urea Nitrogen* 7 mg/dL (5-24); Carbon Dioxide* 28 mmol/L (20-32); Creatinine* 0.5 mg/dL (0.5-1.5); Est. Creatinine Clearance* 123.98; Estimated Glomerular Filt Rate 125 ml/min; Total Protein* 6.6 g/dL (6.0-8.3)
[2022-12-02 06:46] LABS: Calcium* 8.5 mg/dL (8.4-10.6); Glucose* 85 mg/dL (60-115); Magnesium* 1.8 mg/dL (1.5-2.6)
[2022-12-02 07:01] LABS: Procalcitonin* 0.03 ng/mL (<0.50)
[2022-12-02] MEDS: KETOROLAC 30 MG/ML inj IVP ×3 (08:23→21:00)
[2022-12-02] MEDS: SENNOSIDES/DOCUSATE TABLET 1 TAB PO (08:23)
--- NOTE | 2022-12-02 08:52 | P.GSPN_ITS ---
Subjective Subjective Date Seen: 12/02/22 Interval history: Patient is doing ok this morning. She did have some increase in pain overnight and reports pain with urination or drinking. No fevers overnight. Pain is still just above her pubic bone. She did tolerate liquids wihtout nausea and is feeling hungry this morning. Exam Narrative: Exam Narrative: Gen: Alert and oriented, NAD, non toxic Resp: equal breath rise bilaterally, maintained on room air CV: RRR Abdomen: soft, non distended, tender to palpation above pubic bone with some guarding and rebound. Const: Vital Signs, click to edit/add: Vital Signs - 24 hr 12/01/22 11:00 12/01/22 15:00 12/01/22 20:25 Temperature 97.6 F 98.0 F 97.9 F Pulse Rate [Pulse Oximeter] 80 87 77 Respiratory Rate 16 16 16 Blood Pressure [Ri ght Arm] 97/60 101/59 L 95/57 L Pulse Oximetry 98 97 98 Oxygen Delivery Me thod Room Air Room Air Room Air 12/01/22 23:00 12/01/22 23:00 12/02/22 03:00 Temperature 98.4 F 98.5 F Pulse Rate [Pulse Oximeter] 67 67 76 Respiratory Rate 16 16 16 Blood Pressure [Ri ght Arm] 110/64 107/63 Pulse Oximetry 98 97 Oxygen Delivery Me thod Room Air Room Air Progress Note: A&P Assessment and plan (1) Diverticulitis of large intestine with complication: Problem details: -ertapenem IV, 1 g Q 24. First dose was 2:00 a.m. 12/01/2022 -surgical consult -pain management, nausea management -holding Lovenox, SCDs -IV PPI -NPO Status: Acute Assessment and Plan: Vital signs stable with patient afebrile overnight. She is steak tenderizer machine above her pubic bone with patient reporting pain with urination. Will order a UA with reflex culture to rule out a UTI. Her WBC has trended down to 11.9. CRP is mildly elevated to 7.0 from 5.8 yesterday. Patient okay to advance her diet to low fiber, which I would recommend continuing at the time of discharge. Recommend continuing with a course of IV ertapenem, 7 versus 10 days, with interval follow-up to transition to a course of oral antibiotics for a complete 14 day total course. Anticipate discharge later today versus tomorrow. Recommend that patient see me in clinic to discuss possible surgical intervention for her diverticular disease and post hospitalization colonoscopy.
--- NOTE | 2022-12-02 09:45 | P.IMPN_ITS ---
Progress Note: A&P Assessment and plan (1) Diverticulitis of large intestine with complication: Problem details: -ertapenem IV, 1 g Q 24. First dose was 2:00 a.m. 12/01/2022, status post 2 doses -discussed with surgery -pain management, nausea management -SCDs -low-fiber diet -probiotics -UA with culture and sensitivity -saline lock her with improved PO intake Status: Acute Subjective Date Seen: 12/02/22 Interval history: Daily Progress Note - Hospital Medicine Day #: 2 Day #2 Ertapenem CC: Acute diverticulitis with phlegmon OVERNIGHT UPDATES FROM STAFF & MED, LAB, IMAGING UPDATES Stable night. Pain has really changed for the better. She is taking oral Oxy verses IV morphine. She is tolerating the clear liquid diet. No fevers. CBC is stable. CRP reflects a small elevation. I discussed the case with general surgery. Continue current cares with the IV ertapenem, add a probiotic, increase her to a low-fiber diet. Back off the IV fluids. Trend her labs. For 7-10 days of an IV antibiotic. Follow-up 2 weeks with general surgery. Objective: Vitals: see above Lungs: Clear. Cardiac: S1S2. Abdomen: Soft. Tender throughout the lower quadrants. Bowel sounds. No peritoneal signs. Disposition/Potential discharge - Likely to return to previous living situation. Total time is 35 minutes with greater than 50% spent in counseling and coordination of care. Exam Const: Vital Signs, click to edit/add: Vital Signs - 24 hr 12/01/22 11:00 12/01/22 15:00 12/01/22 20:25 Temperature 97.6 F 98.0 F 97.9 F Pulse Rate [Pulse Oximeter] 80 87 77 Respiratory Rate 16 16 16 Blood Pressure [Ri ght Arm] 97/60 101/59 L 95/57 L Pulse Oximetry 98 97 98 Oxygen Delivery Me thod Room Air Room Air Room Air 12/01/22 23:00 12/01/22 23:00 12/02/22 03:00 Temperature 98.4 F 98.5 F Pulse Rate [Pulse Oximeter] 67 67 76 Respiratory Rate 16 16 16 Blood Pressure [Ri ght Arm] 110/64 107/63 Pulse Oximetry 98 97 Oxygen Delivery Me thod Room Air Room Air Labs Labs: Laboratory Results - last 24 hr 12/01/22 12/02/22 15:14 05:50 WBC 11.34 H 11.90 H RBC 3.81 L 3.97 L Hgb 11.6 L 12.1 Hct 34.5 35.6 MCV 91 90 MCH 30 31 MCHC 34 34 RDW Coeff of René 12.4 12.2 Plt Count 350 361 Neut % (Auto) 76.5 H 81.5 H Lymph % (Auto) 16.7 L 13.0 L [place] % (Auto) 5.8 4.6 Eos % (Auto) 0.4 0.3 Baso % (Auto) 0.2 0.3 Neut # (Auto) 8.70 H 9.70 H Lymph # (Auto) 1.90 1.50 [place] # (Auto) 0.70 0.50 Eos # (Auto) 0.00 0.00 Baso # (Auto) 0.00 0.00 INR 0.96 Sodium 134 L Potassium 4.0 Chloride 101 Carbon Dioxide 28 BUN 7 Creatinine 0.5 Estimated Creat Clear 123.98 Estimated GFR 125 Glucose 85 Calcium 8.5 Ionized Calcium [place] 1.13 Magnesium 1.8 Total Bilirubin 0.3 AST 36 H ALT 64 H Alkaline Phosphatase 160 H C-Reactive Protein 7.0 H Total Protein 6.6 Albumin 3.7 Procalcitonin 0.03
[2022-12-02 10:27] LABS: Appearance Urine Clear (Clear); Bilirubin Urine Negative (Negative); Blood Urine Trace-intact (Negative); Color Urine Yellow (Yellow); Glucose Urine Negative (Negative); Ketones Urine 3+ (Negative); Leukocyte Esterase Urine Negative (Negative); Nitrite Urine Negative (Negative); Protein Urine Negative (Negative); Urobilinogen Urine 0.2 (0.2-1.0); pH Urine 8.5 (5.0-8.5)
[2022-12-02 10:28] LABS: Basophils Absolute Auto 0.02 K/uL (0.00-0.30); Basophils Percent Auto 0.2 % (0.0-3.0); Eosinophils Absolute Auto 0.03 K/uL (0.00-0.50); Eosinophils Percent Auto 0.3 % (0.0-7.0); Hematocrit 32.5 % (33.0-51.0); Hemoglobin* 11.1 gm/dL (12.0-16.0); Immature Granulocytes Abs Auto 0.02 K/uL (0.00-0.30); Immature Granulocytes Pct Auto 0.2 %; Lymphocytes Percent Auto 13.9 % (20-44); Mean Corpuscular HGB Conc 34 gm/dL (32-36); Mean Corpuscular Hemoglobin 31 pg (26-34); Mean Corpuscular Volume 89 fL (80-100); Neutrophils Percent Auto 80.4 % (42.0-72.0); Platelet Count* 315 K/uL (140-440); RDW Coefficient of Variation % 12.1 % (11.5-15.5); Red Blood Count 3.64 m/uL (4.00-5.20); White Blood Count* 10.84 K/uL (4.50-11.00)
[2022-12-02 10:35] LABS: Slide Review Reflex No
[2022-12-02 10:57] LABS: RBC Urine 0-2 (0-2); WBC Urine 0-2 (0-5)
[2022-12-02] MEDS: LACTATED RINGERS 1000 ML 1,000 ML 75 ML IV (11:44)
[2022-12-02] MEDS: LACTOBACILLUS ACIDOPHILUS 1 TABLET 1 TAB PO ×2 (11:44→17:53)
[2022-12-02] MEDS: 0.9 % SODIUM CHLORIDE 1000 ml 1,000 ML 500 ML IV (14:16)
[2022-12-02] MEDS: ONDANSETRON 2 MG/ML inj 4 MG IVP (14:42)
--- NOTE | 2022-12-02 15:12 | PC.NURSE ---
End of Shift: A&O. VS WNL. Bs active. Rating pain 4-9/10. PRN oxycodone and Toradol given with relief. Lower abdomen is tender upon palpation. Pt had soup this am and tolerated well. Then tried an egg and did not tolerate. Pt complained of nausea and pain after meal. PRN medication given. Walked in dudley with pt but complained of dizziness, nausea, and bloating. Belly does look distended but still soft. PRN Toradol and Zofran were given. [employer] mental health practitioner used.
--- NOTE | 2022-12-02 15:36 | CRLHL7_ITS ---
For Patients: As a result of the Century Cures Act, medical imaging exams and procedure reports are released immediately into your electronic medical record. You may view this report before your referring provider. If you have questions, please contact your health care provider. INDICATION: Diverticulitis, phlegmon versus abscess. TECHNIQUE: CT abdomen and pelvis acquired with 54 cc Isovue 370 IV contrast. COMPARISON: CT abdomen and pelvis 12/01/2022. FINDINGS: Lower chest: Mild bilateral lower lobe atelectasis. Liver: Unremarkable. Normal in size and attenuation. No suspicious masses. Gallbladder and bile ducts: The gallbladder contains contrast from prior CT scan. No stones or inflammation. No biliary dilatation. Pancreas: Unremarkable. No mass or inflammation. Spleen: Unremarkable. Normal in size. No masses. Adrenal glands: Unremarkable. No nodules. Kidneys: Unremarkable. No suspicious masses, stones, or hydronephrosis. GI tract: Redemonstrated short-segment sigmoid colon mural thickening with surrounding fat stranding. A low-density collection is again noted in the left aspect of the sigmoid colon wall measuring 1.6 x 1.8 cm, not significantly changed compared to the prior exam. There is no definite rim enhancement or focal organization of the collection at this time. Normal appendix. Unremarkable small bowel. Vasculature: Abdominal aorta is normal in caliber. Mesenteric arteries are patent. Lymph nodes: No lymphadenopathy. Peritoneum/Abdominal Wall: No free air or significant free fluid. Pelvis: Multi fibroid uterus. The uterus and ovaries are pushed anteriorly due to the formation from sigmoid inflammatory changes posteriorly. Unremarkable ovaries. Bones: Unremarkable for age. IMPRESSION: Re-demonstrated acute sigmoid colon diverticulitis with grossly unchanged 1.8 cm region of phlegmon in the left wall of the involved segment of sigmoid colon. There is not enough organization of this collection to consider it an abscess at this time. Please note that all CT scans at this facility use dose modulation, iterative reconstruction, and/or weight-based dosing when appropriate to reduce radiation dose to as low as reasonably achievable. Dictated by Raymond Huertas MD @ 12/02/2022 5:12:51 PM (Electronically Signed)
--- NOTE | 2022-12-02 17:59 | PC.NURSE ---
Weed Sprayer assumed care at 1500, pt alert and oriented. BS active, initially denied nausea and stated controlled pain but after eating 100% of soup this evening for dinner, pt stated 8/10 pain to lower abdomen, PRN Oxycodone admin. [employer] highway inspector services utilized. BS active. Pt went for repeat abd CT this afternoon, per MD results are reassuring and unchanged from prior scan, pt updated. Pt denies questions. Vitals stable, received IV NS 500ml/bolus started on prior shift and completed on residential mortgage underwriter's shift, pt tolerated. Voiding without difficulty, continues on LR at 75ml/hr. Pt has call light within reach and encouraged to use to notify staff of any needs.
--- NOTE | 2022-12-02 22:24 | PC.NURSE ---
Addendum entered by Samra Rivera RN 12/02/22 22:28: RN uses [place] language for basic communication and care for patient. Original Note: Shift [id number]- Patient states she only has a small amount of pain this evening, but is increased to 10/10 a while later. PRN pain medication given with relief.
[2022-12-03] VITALS (7 sets, daily range): BP systolic 91–108; BP diastolic 58–76; PULSE 62–92; RESP 14–16; TEMP 36.4–37.1; O2SAT 96–100
[2022-12-03] MEDS: OXYCODONE 5 MG TABLET PO ×3 (00:01→12:36)
[2022-12-03] MEDS: LACTATED RINGERS 1000 ML 1,000 ML 75 ML IV ×2 (00:02→12:31)
[2022-12-03] MEDS: ERTAPENEM 1 GM in 0.9 % SODIUM CHLORIDE Mini-bag 100 ML IVPB ×2 (02:58→22:26)
[2022-12-03 06:33] LABS: Ionized Calcium* 1.12 mmol/L (1.11-1.30)
--- NOTE | 2022-12-03 06:47 | PC.NURSE ---
Pt is alert and oriented x3. Afebrile. Pt reports pain 10/10 in lower abdomen, pain managed with PRN oxycodone. Pt abdomen continues to be?tender to touch. Pt bowel sounds are present and active in all 4 quadrants,?pt is voiding. Pt?has not had a BM since day before admission 11/30/22, pt is on scheduled senna. Pt denies chest pain, SOB, and N/V. Pt is up IND in room, tolerating a reg?diet. Pt slept intermittently?throughout night.?
[2022-12-03 07:09] LABS: Albumin* 3.3 g/dL (3.3-5.0); Chloride* 100 mmol/L (96-114); Sodium* 132 mmol/L (135-149)
[2022-12-03 07:10] LABS: Potassium* 3.9 mmol/L (3.6-5.1)
[2022-12-03 07:12] LABS: Alkaline Phosphatase* 152 U/L (40-150); Aspartate Amino Transferase* 28 U/L (12-35); Bilirubin Total* 0.4 mg/dL (0.1-1.5); Blood Urea Nitrogen* 5 mg/dL (5-24); Carbon Dioxide* 27 mmol/L (20-32); Creatinine* 0.5 mg/dL (0.5-1.5); Est. Creatinine Clearance* 123.98; Estimated Glomerular Filt Rate 125 ml/min; Total Protein* 6.1 g/dL (6.0-8.3)
[2022-12-03 07:13] LABS: Alanine Aminotransferase* 48 U/L (4-35); Calcium* 8.2 mg/dL (8.4-10.6); Glucose* 78 mg/dL (60-115); Magnesium* 1.7 mg/dL (1.5-2.6)
[2022-12-03 07:15] LABS: C Reactive Protein* 7.6 mg/dL (0.5-1.0)
[2022-12-03] MEDS: SENNOSIDES/DOCUSATE TABLET 1 TAB PO (08:00)
[2022-12-03] MEDS: KETOROLAC 30 MG/ML inj IVP ×2 (08:01→20:31)
[2022-12-03] MEDS: LACTOBACILLUS ACIDOPHILUS 1 TABLET 1 TAB PO ×3 (08:01→17:43)
[2022-12-03 08:26] LABS: Hematocrit 32.7 % (33.0-51.0); Hemoglobin* 11.1 gm/dL (12.0-16.0); Mean Corpuscular HGB Conc 34 gm/dL (32-36); Mean Corpuscular Hemoglobin 30 pg (26-34); Mean Corpuscular Volume 89 fL (80-100); Platelet Count* 328 K/uL (140-440); Red Blood Count 3.66 m/uL (4.00-5.20); White Blood Count* 11.76 K/uL (4.50-11.00)
[2022-12-03 08:27] LABS: Gamma Glutamyl Transpeptidase* 199 U/L (8-55)
[2022-12-03 08:36] LABS: Slide Review Reflex No
--- NOTE | 2022-12-03 10:54 | PM.GSPN ---
Subjective Subjective Date Seen: 12/03/22 Interval history: Patient is stable this morning. She denies any improvement in her pain, but does not think it has been getting worse. She still has some discomfort with moving or urinating. She has been tolerating food without difficulty. Denies any nausea or vomiting. No fevers. Exam Narrative: Exam Narrative: General: Alert and oriented, no acute distress. Nontoxic in appearance Abdomen: Soft, non distended, tender to palpation left lower quadrant and suprapubic with some guarding. No signs of peritonitis and no rebound. Const: Vital Signs, click to edit/add: Vital Signs - 24 hr 12/02/22 11:00 12/02/22 15:00 12/02/22 14:42 Temperature 98.6 F Pulse Rate [Pulse Oximeter] 77 77 Respiratory Rate 16 16 16 Blood Pressure [Le ft Arm] Blood Pressure [Ri ght Arm] 103/60 105/65 Pulse Oximetry 98 Oxygen Delivery Me thod Room Air 12/02/22 15:45 12/02/22 19:27 12/02/22 23:00 Temperature 98.5 F 97.7 F Pulse Rate [Pulse Oximeter] 77 71 82 Respiratory Rate 16 18 16 Blood Pressure [Le ft Arm] 103/74 122/76 Blood Pressure [Ri ght Arm] Pulse Oximetry 97 98 Oxygen Delivery Me thod Room Air Room Air 12/02/22 23:00 12/03/22 03:00 12/03/22 07:55 Temperature 98.3 F 98.2 F 98.5 F Pulse Rate [Pulse Oximeter] 82 92 78 Respiratory Rate 16 16 16 Blood Pressure [Le ft Arm] 110/67 99/63 99/68 Blood Pressure [Ri ght Arm] Pulse Oximetry 98 96 97 Oxygen Delivery Me thod Room Air Room Air Room Air 12/03/22 08:01 Temperature 98.5 F Pulse Rate [Pulse Oximeter] Respiratory Rate Blood Pressure [Le ft Arm] Blood Pressure [Ri ght Arm] Pulse Oximetry Oxygen Delivery Me thod Labs/Imaging Labs Labs: WBC 11.9, CRP 7.8 Imaging Imaging: Repeat CT scan reviewed, imaging is stable with no drainable abscess identified and no evidence of free air. Progress Note: A&P Assessment and plan (1) Diverticulitis of large intestine with complication: Problem details: -ertapenem IV, 1 g Q 24. First dose was 2:00 a.m. 12/01/2022, status post 2 doses -discussed with surgery -pain management, nausea management -SCDs -low-fiber diet -probiotics -UA with culture and sensitivity -saline lock her with improved PO intake Status: Acute Assessment and Plan: Vital signs stable with patient afebrile overnight. Lab stable and exam is stable for me this morning. No recommendations for surgical intervention at this time, continue with medical management of IV antibiotics and slowly advanced diet. Anticipate discharge later today versus tomorrow.
--- NOTE | 2022-12-03 14:54 | PC.NURSE ---
Patient alert and oriented x 3. Pain managed well with prn oxycodone and tordal. Appetite fair, ate toast for breakfast and lunch. Education provided on managing bowels with use of IPad dry cleaning checker. Bowel sounds active x 4 quadrants. Patient tolerating ambulating 300 feet with SBA.
--- NOTE | 2022-12-03 17:48 | PC.NURSE ---
Pt calm and cooperative during shift. Pt alert and oriented x4. VSS. Pt had no pain during the shift. Pt has discomfort with palpitation of lower quadrants. Associate Product Integrity Engineer services was used to explain nurse assessment and medication administration.? Pt independent in room.?
[2022-12-03] MEDS: MORPHINE 2 MG/ML inj IVP (18:31)
--- NOTE | 2022-12-03 20:23 | P.IMPN_ITS ---
Progress Note: A&P Assessment and plan (1) Diverticulitis of large intestine with complication: Problem details: -ertapenem IV, 1 g Q 24. First dose was 2:00 a.m. 12/01/2022, status post 2 doses -discussed with surgery -pain management, nausea management -SCDs -low-fiber diet -probiotics -UA with culture and sensitivity -saline lock her with improved PO intake Status: Acute (2) History of diverticulitis: Problem details: June 2022, outpatient treatment. Recommend outpatient colonoscopy Status: Acute Plan Continue in hospital for IV fluids and IV antibiotics. Monitor for improved oral intake and resolution of abdominal tenderness and transition to outpatient therapy. Time Spent With Patient Total time spent: Total time spent today is 30 minutes, 20 minutes in coordination of care discussing with patient other providers ongoing evaluation management of diverticulitis Subjective Date Seen: 12/03/22 Interval history: 37-year-old female seen in followup of hospitalization for recurrent sigmoid diverticulitis with a phlegmon. Afebrile. Currently treated with ertapenem. Tolerating some p.o. food and fluid with poor appetite. Still requiring IV fluids. Still reporting moderate amount of pain. She is having diarrhea. Communication through online staff interpreter. Exam Narrative: Exam Narrative: She is alert and appears in no distress. She gives her own history. She is oriented to her circumstances. Respirations are clear to auscultation. Cardiovascular: S1, S2, regular rate and rhythm. No murmur gallop or rub. Abdomen: Bowel sounds are active. Abdomen is soft with moderate diffuse low abdominal tenderness. Moderate voluntary guarding. Extremities without edema. Good peripheral perfusion. Const: Vital Signs, click to edit/add: Vital Signs - 24 hr 12/02/22 23:00 12/02/22 23:00 12/03/22 03:00 Temperature 98.3 F 98.2 F Pulse Rate [Pulse Oximeter] 82 82 92 Respiratory Rate 16 16 16 Blood Pressure [Le ft Arm] 110/67 99/63 Pulse Oximetry 98 96 Oxygen Delivery Me thod Room Air Room Air 12/03/22 07:55 12/03/22 08:01 12/03/22 11:08 Temperature 98.5 F 98.5 F 97.5 F L Pulse Rate [Pulse Oximeter] 78 67 Respiratory Rate 16 14 Blood Pressure [Le ft Arm] 99/68 91/58 L Pulse Oximetry 97 97 Oxygen Delivery Me thod Room Air Room Air 12/03/22 15:20 12/03/22 20:12 Temperature 98.4 F 98.8 F Pulse Rate [Pulse Oximeter] 68 70 Respiratory Rate 14 16 Blood Pressure [Le ft Arm] 97/62 108/76 Pulse Oximetry 97 100 Oxygen Delivery Me thod Room Air Room Air Documenting provider has reviewed patient's vital signs: yes Labs Labs: Laboratory Results - last 24 hr 12/03/22 05:50 WBC 11.76 H Corrected WBC Cancelled RBC 3.66 L Hgb 11.1 L Hct 32.7 L MCV 89 MCH 30 MCHC 34 RDW Coeff of René Cancelled Plt Count 328 Neut % (Auto) Cancelled Lymph % (Auto) Cancelled [place] % (Auto) Cancelled Eos % (Auto) Cancelled Baso % (Auto) Cancelled Neut # (Auto) Cancelled Lymph # (Auto) Cancelled [place] # (Auto) Cancelled Eos # (Auto) Cancelled Baso # (Auto) Cancelled Abs Immat Gran (auto) Cancelled Imm/Tot Granulo (auto) Cancelled Sodium 132 L Potassium 3.9 Chloride 100 Carbon Dioxide 27 BUN 5 Creatinine 0.5 Estimated Creat Clear 123.98 Estimated GFR 125 Glucose 78 Calcium 8.2 L Ionized Calcium Brittni 1.12 Magnesium 1.7 Total Bilirubin 0.4 GGT 199 H AST 28 ALT 48 H Alkaline Phosphatase 152 H C-Reactive Protein 7.6 H Total Protein 6.1 Albumin 3.3
[2022-12-04] MEDS: OXYCODONE 5 MG TABLET PO ×2 (00:48→15:39)
[2022-12-04] MEDS: LACTATED RINGERS 1000 ML 1,000 ML 75 ML IV (00:49)
[2022-12-04] MEDS: 0.9 % SODIUM CHLORIDE 250 ml IV (02:16)
[2022-12-04 05:00] VITALS: BP 96/57; PULSE 64; RESP 16; TEMP 36.5; O2SAT 97
--- NOTE | 2022-12-04 05:37 | PC.NURSE ---
[id number]: Patient pleasant and cooperative. Parts Facilitator used. Rates pain 0-8/10. PRN Toradol and Oxycodone administered for relief. Denies N/V. BS active. Ambulation encouraged. Walked in dudley x1. Independent. Eating and voiding.
[2022-12-04 06:06] LABS: Basophils Absolute Auto 0.02 K/uL (0.00-0.30); Basophils Percent Auto 0.3 % (0.0-3.0); Eosinophils Percent Auto 1.4 % (0.0-7.0); Hematocrit 32.1 % (33.0-51.0); Hemoglobin* 10.9 gm/dL (12.0-16.0); Immature Granulocytes Abs Auto 0.02 K/uL (0.00-0.30); Immature Granulocytes Pct Auto 0.3 %; Lymphocytes Percent Auto 33.2 % (20-44); Mean Corpuscular HGB Conc 34 gm/dL (32-36); Mean Corpuscular Hemoglobin 30 pg (26-34); Mean Corpuscular Volume 89 fL (80-100); Monocytes Percent Auto 5.5 % (0.0-11.0); Neutrophils Absolute Auto 4.11 K/uL (1.7-7.0); Neutrophils Percent Auto 59.3 % (42.0-72.0); Platelet Count* 351 K/uL (140-440); RDW Coefficient of Variation % 11.9 % (11.5-15.5); Red Blood Count 3.59 m/uL (4.00-5.20); White Blood Count* 6.93 K/uL (4.50-11.00)
[2022-12-04 06:21] LABS: Chloride* 104 mmol/L (96-114)
[2022-12-04 06:22] LABS: Potassium* 3.9 mmol/L (3.6-5.1); Slide Review Reflex No; Sodium* 135 mmol/L (135-149)
[2022-12-04 06:24] LABS: Creatinine* 0.5 mg/dL (0.5-1.5); Est. Creatinine Clearance* 124.86; Estimated Glomerular Filt Rate 125 ml/min
[2022-12-04 06:25] LABS: Blood Urea Nitrogen* 4 mg/dL (5-24); Calcium* 8.4 mg/dL (8.4-10.6); Carbon Dioxide* 28 mmol/L (20-32); Glucose* 85 mg/dL (60-115)
[2022-12-04 06:28] LABS: C Reactive Protein* 7.2 mg/dL (0.5-1.0)
[2022-12-04 07:00] VITALS: BP 104/71; PULSE 62; PULSE 64; RESP 16; TEMP 36.8; O2SAT 97
[2022-12-04] MEDS: LACTOBACILLUS ACIDOPHILUS 1 TABLET 1 TAB PO ×2 (07:45→11:50)
[2022-12-04] MEDS: KETOROLAC 30 MG/ML inj 15 MG IVP (07:46)
[2022-12-04 10:57] VITALS: BP 106/83; PULSE 60; RESP 16; TEMP 36.9; O2SAT 97
--- NOTE | 2022-12-04 12:28 | P.DS_ITS ---
DS: Providers Provider Time Seen by Provider: 10:20 Date Seen: 12/04/22 Date of admission: 12/01/22 03:20 Primary care physician: Ana Maria Hair MD Admitting Clinician: Yandel Siegel MD Consults: 12/01/22 03:11 Consult to Physician [CONS] Urgent Comment: Consulting Provider: Nani Lynn Has provider been notified: Yes 12/01/22 04:38 Consult to Managing Director [employer] [CONS] Routine Comment: Reason for Consult:: Ops Manager Needed Attending Physician on discharge: Eunice Villasenor MD Date of Discharge: 12/04/22 DS: Diagnosis Discharge Diagnosis (1) Diverticulitis of large intestine with complication: Status: Acute Problem details: -ertapenem IV, 1 g Q 24. First dose was 2:00 a.m. 12/01/2022, status post 2 doses -pain controlled with oral oxycodone and Toradol -low-fiber diet -probiotics -discussed with surgery - discharging home today after getting a PICC line placed for daily IV ertapenem for a total of 10 days. Follow-up with primary care provider near the end of antibiotics. - recommend outpatient colonoscopy. (2) History of diverticulitis: Status: Chronic Problem details: June 2022, outpatient treatment. Recommend outpatient colonoscopy DS: Summary Hospital Course Hospital Course: 37-year-old female who had 2-3 days of lower abdominal pain with no nausea or vomiting. Is a history of diverticulitis in June of 2022. She did not follow-up with colonoscopy as instructed. Abdominal pelvic CT revealed acute sigmoid diverticulitis with phlegmon or less likely developing abscess along the leftward aspect of the sigmoid colon. She was started on IV ertapenem and admitted to the hospital. Dr. Lynn from general surgery consulted as above. This patient is doing better today and is able to tolerate a general diet, low- fiber. She is discharged home with a PICC line for outpatient IV ertapenem. Through a can carrier today, I have asked her to establish care and follow-up regularly with a primary care provider. She will need an outpatient colonoscopy. Time Spent with Patient Time attestation: Total time spent providing and/or coordinating discharge services: Exam Narrative: Exam Narrative: General: No acute distress. Awake, alert, oriented. No pallor. No jaundice. Oropharynx: Clear. Mucous membranes moist. Cardiovascular: Regular rate and rhythm. No murmurs, gallops, or rubs. Respiratory: Clear to auscultation bilaterally. No wheezes or crackles. Abdomen: Bowel sounds present. Soft, nondistended, mildly tender in the suprapubic area and left lower quadrant. No rebound tenderness or guarding. Extremities: No pedal edema. Const: Vital Signs, click to edit/add: Vital Signs - 24 hr 12/03/22 15:20 12/03/22 20:12 12/03/22 22:29 Temperature 98.4 F 98.8 F 98.6 F Pulse Rate [Pulse Oximeter] 68 70 62 Respiratory Rate 14 16 16 Blood Pressure [Le ft Arm] 97/62 108/76 108/72 Pulse Oximetry 97 100 98 Oxygen Delivery Me thod Room Air Room Air Room Air 12/04/22 05:00 12/04/22 07:00 12/04/22 07:00 Temperature 97.7 F 98.2 F Pulse Rate [Pulse Oximeter] 64 64 62 Respiratory Rate 16 16 16 Blood Pressure [Le ft Arm] 96/57 L 104/71 Pulse Oximetry 97 97 Oxygen Delivery Me thod Room Air Room Air 12/04/22 10:57 Temperature 98.5 F Pulse Rate [Pulse Oximeter] 60 Respiratory Rate 16 Blood Pressure [Le ft Arm] 106/83 Pulse Oximetry 97 Oxygen Delivery Me thod Room Air DS: Data Data Completed and Pending Labs on day of discharge: Labs from last 24 hours 12/04/22 05:33 WBC 6.93 RBC 3.59 L Hgb 10.9 L Hct 32.1 L MCV 89 MCH 30 MCHC 34 RDW Coeff of René 11.9 Plt Count 351 Neut % (Auto) 59.3 Lymph % (Auto) 33.2 [place] % (Auto) 5.5 Eos % (Auto) 1.4 Baso % (Auto) 0.3 Neut # (Auto) 4.11 Lymph # (Auto) 2.30 [place] # (Auto) 0.40 Eos # (Auto) 0.10 Baso # (Auto) 0.02 Sodium 135 Potassium 3.9 Chloride 104 Carbon Dioxide 28 BUN 4 L Creatinine 0.5 Estimated Creat Clear 124.86 Estimated GFR 125 Glucose 85 Calcium 8.4 C-Reactive Protein 7.2 H Ordering Physician: Ailyn Mack M.D. Date of Service: 12/01/22 Procedure(s): CT abdomen pelvis w con Accession Number(s): [id number] cc: Ailyn Mack M.D.; Ana Maria Hair M.D.~ For Patients: As a result of the Cures Act, medical imaging exams and procedure reports are released immediately into your electronic medical record. You may view this report before your referring provider. If you have questions, please contact your health care provider. INDICATION: Left lower quadrant pain. TECHNIQUE: CT abdomen and pelvis acquired with 69 cc Isovue 370 IV contrast. COMPARISON: CT abdomen pelvis 07/06/2022. FINDINGS: Lower chest: Unremarkable. Liver: Unremarkable. Normal in size and attenuation. No suspicious masses. Gallbladder and bile ducts: Contracted gallbladder. No stones or inflammation. No biliary ductal dilatation. Spleen: Unremarkable. Normal in size. No masses. Adrenal glands: Unremarkable. No nodules. Pancreas: Unremarkable. No mass or inflammation. Kidneys: Unremarkable. No suspicious masses, stones, or hydronephrosis. GI tract: Few colonic diverticula. Wall thickening of the sigmoid colon with surrounding fat stranding. Low density collection along the leftward aspect of the sigmoid colon measuring 2.0 x 1.6 cm. No evidence of obstruction. Normal appendix. Lymph nodes: No lymphadenopathy. Vasculature: Unremarkable. Omentum/Peritoneum/Abdominal Wall: Trace free fluid in the pelvis. No free air. Pelvis: Multiple uterine fibroids. Bones: Unremarkable for age. IMPRESSION: 1. Acute sigmoid diverticulitis with phlegmon or less likely developing abscess along the leftward aspect of the sigmoid colon. 2. Fibroid uterus. Please note that all CT scans at this facility use dose modulation, iterative reconstruction, and/or weight-based dosing when appropriate to reduce radiation dose to as low as reasonably achievable. Dictated by Lee Kolb MD @ 12/01/2022 1:44:16 AM (Electronically Signed) Ordering Physician: Xiomy Turner M.D. Date of Service: 12/02/22 Procedure(s): CT abdomen pelvis w con Accession Number(s): [id number] cc: Xiomy Turner M.D.; Ana Maria Hair M.D.~ For Patients: As a result of the 21st Century Cures Act, medical imaging exams and procedure reports are released immediately into your electronic medical record. You may view this report before your referring provider. If you have questions, please contact your health care provider. INDICATION: Diverticulitis, phlegmon versus abscess. TECHNIQUE: CT abdomen and pelvis acquired with 54 cc Isovue 370 IV contrast. COMPARISON: CT abdomen and pelvis 12/01/2022. FINDINGS: Lower chest: Mild bilateral lower lobe atelectasis. Liver: Unremarkable. Normal in size and attenuation. No suspicious masses. Gallbladder and bile ducts: The gallbladder contains contrast from prior CT scan. No stones or inflammation. No biliary dilatation. Pancreas: Unremarkable. No mass or inflammation. Spleen: Unremarkable. Normal in size. No masses. Adrenal glands: Unremarkable. No nodules. Kidneys: Unremarkable. No suspicious masses, stones, or hydronephrosis. GI tract: Redemonstrated short-segment sigmoid colon mural thickening with surrounding fat stranding. A low-density collection is again noted in the left aspect of the sigmoid colon wall measuring 1.6 x 1.8 cm, not significantly changed compared to the prior exam. There is no definite rim enhancement or focal organization of the collection at this time. Normal appendix. Unremarkable small bowel. Vasculature: Abdominal aorta is normal in caliber. Mesenteric arteries are patent. Lymph nodes: No lymphadenopathy. Peritoneum/Abdominal Wall: No free air or significant free fluid. Pelvis: Multi fibroid uterus. The uterus and ovaries are pushed anteriorly due to the formation from sigmoid inflammatory changes posteriorly. Unremarkable ovaries. Bones: Unremarkable for age. IMPRESSION: Re-demonstrated acute sigmoid colon diverticulitis with grossly unchanged 1.8 cm region of phlegmon in the left wall of the involved segment of sigmoid colon. There is not enough organization of this collection to consider it an abscess at this time. Please note that all CT scans at this facility use dose modulation, iterative reconstruction, and/or weight-based dosing when appropriate to reduce radiation dose to as low as reasonably achievable. Dictated by Raymond Huertas MD @ 12/02/2022 5:12:51 PM (Electronically Signed) Discharge Plan Discharge Disposition: Home, Self-Care Date of Admission: 12/01/22 03:20 Attending Provider on Discharge: Eunice Villasenor Consulting Providers: Nani Lynn Primary Care Provider: Ana Maria Hair Condition: Improved Anticipated Discharge Date/Time: 12/04/22 15:00 Discharge Medications: New ibuprofen 600 mg Tablet 600 mg PO Q6H PRNQty: 30 0RF oxycodone 5 mg Tablet 5 mg PO Q4H MDD 20 mg PRN (Reason: Moderate Pain) Qty: 10 0RF Lactobacillus acidophilus 0.5 mg (100 million cell) Tablet 100 mmu cells PO TIDWM Qty: 90 0RF Ertapenem 1 GM 0.9 % SODIUM CHLORIDE Mini-bag 100 ML 200 mls/hr IVPB Q24H Ordered By: Eunice Villasenor MD Last Taken: 12/01/22 01:50 200 mls/hr Continued acetaminophen 500 mg capsule 500 mg PO Q6H PRN Discharge Orders: Discharge Order (Routine); Ordered 12/04/22 Ordered By: Eunice Villasenor Patient Education: Diverticulitis (DC), Diverticulitis Diet (DC) Additional Instructions: Return for fever, worsening pain, blood in the stool. Activity Level: No Restrictions Discharge Diet: Low Fiber Follow Up Appointments: Ana Maria Hair MD [Primary Care Provider] - 12/14/22 10:45 am ([facility], with Dr. Hair for a follow-up.) Forms: [employer] Info Instructions
--- NOTE | 2022-12-04 12:50 | PC.SOCIAL ---
As requested, met with patient using official court interpreter device. Supplied patient with [place] medical assistance application in [place]ian. Also given and explained financial assistance program application from the hospital, and included a print out of resources including the [facility] and [employer]. Patient stated she was familiar with these two agencies. The later two handouts were not available in Croatian, however the patient did acknowledge that someone at home would be able to translate these for her. Patient had no other questions or concerns for this resume writer. [employer]urn Drill Operator to follow up as needed.
[2022-12-04] MEDS: IBUPROFEN 600 MG TABLET PO (13:04)
--- NOTE | 2022-12-04 13:27 | CRLHL7_ITS ---
For Patients: As a result of the Cures Act, medical imaging exams and procedure reports are released immediately into your electronic medical record. You may view this report before your referring provider. If you have questions, please contact your health care provider. Indication: MIDLINE PLACEMENT Technique: Sonographic images of the right cephalic vein submitted. IMPRESSION: Sonographic guidance for midline placement right arm. Dictated by Sae Irby MD @ 12/07/2022 8:57:22 AM (Electronically Signed)
[2022-12-04 15:00] VITALS: BP 123/70; PULSE 60; PULSE 70; RESP 16; TEMP 36.9; O2SAT 97
[2022-12-04] MEDS: ERTAPENEM 1 GM in 0.9 % SODIUM CHLORIDE Mini-bag 100 ML IVPB (15:40)
--- NOTE | 2022-12-04 16:30 | PC.NURSE ---
AVS reviewed. All concerns addressed. Patient verbalized understanding of discharge instructions. Patient with no pain present on dismissal. Patient midline dressing saturated with bloody drainage. Nursing called PICC STAT and nurse on duty states to change dressing and apply coban for pressure. Nursing changed midline dressing and applied coban. BLood return appreciated from midline, no redness, tenderness or drainage from site. Patient tolerated dressing change well. Patient informed on how to cover midline when showering. Patient discharged to home with spouse.
--- NOTE | 2022-12-08 16:47 | PM.EN ---
Chart Event Note Time Seen by Provider: 16:49 Date Seen: 12/08/22 Chart Event Note: 37-year-old female was hospitalized with diverticulitis with micro perforation. Discharged for outpatient IV antibiotic with ertapenem. She has a midline catheter in her right arm and it has now apparently infiltrated. She reports she has otherwise feeling well she is not having any abdominal pain. On examination she has no abdominal tenderness. At this point I think it is reasonable to discontinue IV antibiotics and IV access. I will have her take Cipro and Flagyl for 5 more days until a follow-up appointment next week.
== END 2022-12-04 16:30 | disposition home or self-care (01) | DRG 392 ==
LOC: ED 12-01 03:15 → MEDSURG 12-01 03:21
PROVIDERS: Family Medicine; Internal Medicine; Admitting Provider Internal Medicine; Emergency Provider Family Medicine; PCP Family Medicine; Visit Provider Internal Medicine
DX: K57.20 Diverticulitis of large intestine with perforation and abscess without bleeding (principal); J98.11 Atelectasis; D25.9 Leiomyoma of uterus, unspecified
CPT/HCPCS: 36410; 36415; 74177; 76937; 80048; 80053; 81001; 81003; 81015; 82330; 82977; 83605; 83690; 83735; 84145; 84703; 85025; 85027; 85610; 86140; 87086; 87635; 99284; 99285; T1013; A9270; C9113; J1335; J1885; J2270; J2405; J7030; J7050; J7120; Q9967

== ENCOUNTER 2022-12-08 15:52 | Outpatient (RCR) | payer SELFPAY ==
[2022-12-05 16:26] VITALS: BP 98/64; PULSE 65; RESP 18; TEMP 36.9; O2SAT 99
[2022-12-05] MEDS: SODIUM CHLORIDE 0.9 % (FLUSH) 10 ML SYRINGE IVF (16:32)
[2022-12-05] MEDS: 0.9 % SODIUM CHLORIDE 250 ml IV (16:32)
[2022-12-05] MEDS: ERTAPENEM 1 GM in 0.9 % SODIUM CHLORIDE Mini-bag 100 ML IVPB (16:32)
--- NOTE | 2022-12-05 17:13 | PC.NURSE ---
Infusion- Patient arrives with family member. Infusion tolerated via PICC line without issue. Patient ambulates from unit with all belongings.
[2022-12-06] MEDS: ERTAPENEM 1 GM in 0.9 % SODIUM CHLORIDE Mini-bag 100 ML IVPB (15:53)
[2022-12-06] MEDS: SODIUM CHLORIDE 0.9 % (FLUSH) 10 ML SYRINGE IVF (15:54)
[2022-12-06] MEDS: 0.9 % SODIUM CHLORIDE 250 ml IV (15:54)
[2022-12-06 16:00] VITALS: BP 100/63; PULSE 68; RESP 16; TEMP 36.9; O2SAT 99
--- NOTE | 2022-12-06 17:35 | PC.NURSE ---
Patient to 245. Midline IV in right upper arm flushed and antibiotic infused without difficulty. Patient departed with all personal belongings accompanied by family.
[2022-12-07 16:00] VITALS: BP 100/61; PULSE 68; RESP 18; TEMP 36.8; O2SAT 97
[2022-12-07] MEDS: ERTAPENEM 1 GM in 0.9 % SODIUM CHLORIDE Mini-bag 100 ML IVPB (16:07)
[2022-12-07] MEDS: SODIUM CHLORIDE 0.9 % (FLUSH) 10 ML SYRINGE IVF (16:08)
[2022-12-07] MEDS: 0.9 % SODIUM CHLORIDE 250 ml IV (16:08)
--- NOTE | 2022-12-07 17:14 | PC.NURSE ---
pt came to floor @ 1600. room 277. Midline IV in right upper arm flushed and antibiotic did infused without difficulty. if was flushed before and after with no problems. Patient departed with all personal belongings accompanied by family. tubing metal riveter was placed over picc/arm
[2022-12-08 16:00] VITALS: BP 100/61; PULSE 67; RESP 18; O2SAT 98
[2022-12-08] MEDS: 0.9 % SODIUM CHLORIDE 250 ml IV (16:08)
[2022-12-08] MEDS: ERTAPENEM 1 GM in 0.9 % SODIUM CHLORIDE Mini-bag 100 ML IVPB (16:08)
[2022-12-08] MEDS: SODIUM CHLORIDE 0.9 % (FLUSH) 10 ML SYRINGE IVF (16:10)
--- NOTE | 2022-12-08 17:05 | PC.NURSE ---
PATIENT ARRIVED FOR OUTPATIENT ABX. MIDLINE TO RIGHT UPPER ARM FLUSHED WELL INITIALLY. ABX STARTED AND PATIENT CALLED REPORTING PAIN AT MIDLINE. INSERTION SITE NOTED TO BE SWOLLEN AND AREA TENDER TO TOUCH. PICC STAT UPDATED AND DR. WIN IN TO ASSESS PATIENT. ORDER TO DC MIDLINE. PIV PLACE TO LEFT FA TO FINISH INFUSION AND MIDLINE DC'D WITH TIP INTACT. DR. WIN SENT PATIENT WITH PRESCRIPTION FOR PO CIPRO AND FLAGYL.
== END 2022-12-08 16:00 | disposition home or self-care (01) ==
LOC: MS OUT 15:52
PROVIDERS: PCP Family Medicine; Visit Provider Family Medicine
DX: K57.20 Diverticulitis of large intestine with perforation and abscess without bleeding (principal)
CPT/HCPCS: 96365; 99211; J1335; J7050

== ENCOUNTER 2024-12-15 21:54 | Observation (INO) | payer OTHER, SELFPAY ==
--- OUTSIDE RECORDS SUMMARY | 2024-12-15 21:56 | XMS_ITS | Clinical Summary ---
Author Organization [facility] Address [address] [place] [id number] Care Team Providers Care Roving Or Yarn Color Checker Name Role Phone Ana Maria Hair MD Primary Care Provider Allergies No known active allergies Medications ibuprofen (ADVIL; MOTRIN) 600 mg tablet TAKE ONE TABLET (600MG) BY MOUTH EVERY SIX HOURS NEEDED 12/04/2022 Active ciprofloxacin HCl (CIPRO) 500 mg tablet Take 500 mg by mouth two times daily. 12/09/2022 Active metroNIDAZOLE (FLAGYL) 500 mg tablet Take 500 mg by mouth three times daily. 12/09/2022 Active Active Problems Problem Noted Date Diagnosed Date Supervision of other normal 08/02/2012 Overview (02/27/2013): Will plan repeat with tubal ligation Influenza given 08/08/2012. It's a boy! 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 08/08/2012 Immunizations Immunization Administration Dates Next Due Influenza, IIV3 (Age >=3 years) 08/08/2012,08/12 Tdap 01/13/2013 Family History Medical History Relation Name Comments Good Health Mother Relation Name Status Comments Father cirrhosis Mother Social History Tobacco Use Types Packs/Day Years Used Date Smoking Tobacco: Never Smokeless Tobacco: Never Alcohol Use Standard Drinks/Week Comments No 0 (1 standard drink = 0.6 oz pur e alcohol) Social Connections Answer Date Recorded Frequency of Communication with Friends and Fami ly Not on file 12/14/2022 Comments No Sex and Gender Information Value Date Recorded Sex Assigned at Not on file Legal Sex Female 7:39 AM WELLNESS PROGRAM MANAGER Gender Identity Not on file Sexual Orientation Not on file Occupation Industry Job Start Date Job End Date Not on file Not on file Not on file Not on file Obstetrics History Para Term AB IAB SAB Ectopic Multiple Livin g Live Births 3 2 2 2 Date Outcome GA Total Labor Labor/2nd/3rd Weight Sex Type Anes PTL Sonja A1 A5 Name Clin 008 Term 37w 0d 2.95 kg (6 lb 8 oz) F C-Sec tion Quetzal i Comments:prolonged lab or, lack of amniotic fluid. 011 Term 2.04 kg (4 lb 8 oz) F C-Sec tion Jaretzi Last Filed Vital Signs Vital Sign Reading Time Taken Comments Blood Pressure 92/58 03/23/2023 10:33 AM CDT Pulse 58 03/23/2023 10:33 AM CDT Temperature 36.8 C (98.3 F) 02/27/2013 2:49 PM CDT Respiratory Rate 16 03/23/2023 10:33 AM CDT Oxygen Saturation 100% 03/23/2023 10:33 AM CDT Inhaled Oxygen Concentration - - Weight 48.7 kg (107 lb 6.4 oz) 12/14/2022 10:49 AM CDT Height 138.4 cm (4' 6.5) 02/17/2013 4:55 PM CDT Body Mass Index 25.42 02/17/2013 4:55 PM CDT Plan of Treatment Health Maintenance Due Date Last Done Comments Depression screening for age 12+ 1998 BMI (ht and wt on same day) for age 18+ 2004 Hepatitis C screening for ag e 18-79 2004 Pap test for age 21-65 08/08/2015 2, 08/12/2010, 04/15/2009 Tetanus booster 01/13/2023 01/13/2013 COVID-19 vaccine series ( season) 2024 03/04/2021 Influenza Vaccine (Season Ended) 2025 08/08/2012, 08/12/2010 HIV for age 15-65 Completed 08/02/2012, 07/30/2010 Tdap Completed 01/13/2013 Pneumococcal series for age 6-49 Aged Out No longer eligible b ased on patient's age to complete this topic Procedures Procedure Name Priority Date/Time Associated Diagnosis Comments PHLEBOTOMY TECH THIN PREP PAP SCREEN IMAGED Routine 08/08/2012 4:17 PM WELLNESS PROGRAM MANAGER Cervical cancer screening ANTI HIV 1/2 Routine 08/02/2012 2:31 PM WELLNESS PROGRAM MANAGER Supervision of other normal (HC) from Last 3 Months or Most Recently Relevant to Health Maintenance Results * PHLEBOTOMY TECH THIN PREP PAP SCREEN IMAGED (08/08/2012 4:17 PM WELLNESS PROGRAM MANAGER) CYTOLOGY CYTOPATHOLOGY REPORT [facility] Status: Final Status [id number] CLINICAL INFORMATION Last Date of LMP :06/07/2012 Last Pap Date :08/12/2010 Last Pap Result :NIL ABN [place]/Bx Past 5 YRS :None Hormone Usage :None Menstrual Status : [place]/Bx done today :No Additional Information :None given HPV Request :HPV if ASCUS SPECIMEN SOURCE :Cervical/vaginal ThinPrep Vial, screening SPECIMEN ADEQUACY :Satisfactory for evaluation Endocervical component present. INTERPRETATION/RES ULT Negative for intraepithelial lesion or malignancy (NIL) Organisms Fungal organisms morphologically consistent with Dania species Cytology 1st Screener :had Signed by :had This specimen was screened by the FDA approved ThinPrep Imaging System and manually reviewed. NOTE: The Pap test is a screening technique, not a diagnostic procedure. It is used primarily to screen for squamous cancers and precursor lesions. Published studies have shown that it is subject to both false negative and false positive results. The pap test should not be used as the sole means to diagnose or exclude pre-malignant and malignant lesions. COLLECTED:08/08/12 ACCESSIONED: 08/09/12 SIGNED: 08/10/12 [facility] PAP [place] CODE NIL [facility] Tissue specimen (specimen) (Cervical/Vagina l) 08/08/2012 4:17 PM WELLNESS PROGRAM MANAGER 08/08/2012 4:12 PM WELLNESS PROGRAM MANAGER us Ana Maria Hair MD PATHOLOGY/CYTOLOGY Joann l Result [facility] INTERNAL ZIP [id number] [place] [id number] * ANTI HIV 1/2 (08/02/2012 2:31 PM WELLNESS PROGRAM MANAGER) ANTI HIV 1/2 Non-reacti ve [facility] Blood specimen (specimen) BLOOD SPECIMEN / Unknown 08/02/2012 2:31 PM WELLNESS PROGRAM MANAGER 08/02/2012 2:23 PM WELLNESS PROGRAM MANAGER us Heather Galaviz DEPILATORY PAINTER SEND OUTS F inal Result [facility] INTERNAL ZIP [id number] [place] [id number] from Last 3 Months or Most Recently Relevant to Health Maintenance Care Teams Roving Or Yarn Color Checker Relationship Specialty Start Date End Date Ana [place] [address] PCP - General 08/11/10
[2024-12-15 22:17] VITALS: BP 112/73; PULSE 77; RESP 18; TEMP 37; O2SAT 98
--- NOTE | 2024-12-15 22:39 | ED_ITS ---
HPI - General Adult General Chief complaint: Abdominal Pain Stated complaint: Abdominal pain Time Seen by Provider: 12/15/24 22:06 History of Present Illness HPI narrative: Pt c/o right lower abdominal pain and right flank area since 3 AM. Pt states pain is worse when urinating and defecating. Pt states she has had diarrhea and nausea since this morning. 39-year-old woman presenting to the emergency department with concern lower abdominal pain beginning painter and grader cork today about 19 hours ago. Does seem to hurt more when she urinates or has a bowel movement. She has had some diarrhea. At the end of November was diagnosed with diverticulitis with suspected microperforation and hospitalized here. Discharged a week ago from this facility anticipated with IV antibiotics following infiltration of IV and otherwise well without abdominal pain, was continued on 5 days of ciprofloxacin and Flagyl. Now has noted some bright red blood in her stool again. Pain is somewhat crampy, sharp. Feels like she is back to where she was when all this started. Has felt sweats or hot when the pain flares. Otherwise no fever measured. Related Data Home Medications ?Medication ?Instructions ?Recorded ?Confirmed acetaminophen 500 mg capsule 500 mg PO Q6H PRN 11/30/22 12/15/24 Previous Rx's ?Medication ?Instructions ?Recorded Lactobacillus acidophilus 0.5 mg 100 mmu cells PO TIDWM #90 tabs 12/04/22 (100 million cell) tablet Allergies Allergy/AdvReac Type Severity Reaction Status Date / Time No Known Drug Allergies Allergy Verified 12/15/24 22:26 Review of Systems Status of ROS: Reports: 6 or more systems reviewed and unremarkable except as noted in History and below [facility] Medical History Hyponatremia ?E87.1 - Hypo-osmolality and hyponatremia (ICD-10) History of diverticulitis ?Z87.19 - Personal history of other diseases of the digestive system (ICD-10) Surgical History Delivery by section Social History What is your current living situation?: I presently have a place to live Problems where you live: no known problems Problems where you live details: n/a is caring for children during hospital stay In the past 12 months, utilities in danger of being shut off: no In past 12 months, lack of transportation kept you from medical appts, meetings, work, or getting things needed for daily living: no In the past 12 mos, have been you worried that your food would run out before you had money to buy more?: never true In the past 12 mos, the food you bought just didn't last and you didn't have money to buy more?: never true Highest level of school completed/degree received: 6th grade Smoking Status: Never smoker Do you use any of these nicotine containing products: None How often do you have a drink containing alcohol: 2-4 times a month Alcohol type: beer How often do you have six or more drinks on one occasion: Weekly AUDIT-C Alcohol total score: 5 Non-prescribed substance use: denies use Caffeine: Yes How often does anyone, including family, friends and others, physically hurt you : never How often does anyone, including family, friends and others, insult or talk down to you: never How often does anyone, including family, friends and others, threaten you with harm: never How often does anyone, including family, friends and others, scream or curse at you: never service: No Exam Narrative: Exam Narrative: Pleasant. Calm. NAD. Skin is warm and dry. Abdomen is soft without peritoneal signs. She is mildly tender across the low abdomen/pelvis. Little more so on the right. Lungs are clear. Breathing easily. Heart in regular rate and rhythm without murmur rub or gallop. Well-perfused peripherally. Const: Vital Signs, click to edit/add: Vital Signs - 24 hr 12/15/24 22:17 Temperature 98.6 F Pulse Rate [Pulse Oximeter] 77 Respiratory Rate 18 Blood Pressure [Ri ght Upper Arm] 112/73 Pulse Oximetry 98 Oxygen Delivery Me thod Room Air Documenting provider has reviewed patient's vital signs: yes Course Vital Signs Vital signs: Initial Vital Signs Temperature 98.6 F 12/15/24 22:17 Temperature Source Temporal Artery Scan 12/15/24 22:17 Pulse Rate 77 12/15/24 22:17 Respiratory Rate 18 12/15/24 22:17 Blood Pressure 112/73 12/15/24 22:17 Blood Pressure Mean 86 12/15/24 22:17 Blood Pressure Position Sitting 12/15/24 22:17 Pulse Oximetry 98 12/15/24 22:17 Oxygen Delivery Method Room Air 12/15/24 22:17 Vital Signs Temperature 98.6 F 12/15/24 22:17 Pulse Rate 77 12/15/24 22:17 Respiratory Rate 18 12/15/24 22:17 Blood Pressure 112/73 12/15/24 22:17 Pulse Oximetry 98 12/15/24 22:17 Oxygen Delivery Method Room Air 12/15/24 22:17 Temperature 98.6 F 12/16/24 03:07 Pulse Rate 72 12/16/24 03:07 Respiratory Rate 16 12/16/24 03:07 Blood Pressure 113/66 12/16/24 03:07 Pulse Oximetry 99 12/16/24 03:07 Oxygen Delivery Method Room Air 12/16/24 03:07 Medications Administered Medications: Generic Name Dose Route Start Last Admin Trade Name Freq PRN Reason Stop Dose Admin Piperacillin Sod/Tazobactam 100 mls @ 200 mls/hr 12/16/24 03:45 12/16/24 05:11 Sod 3.375 gm/ Sodium Chloride IVPB Infused Q6H LAQUITA Infusion Sodium Chloride 1,000 mls @ 100 mls/hr 12/16/24 03:34 12/16/24 04:00 0.9 % Sodium Chloride 1000 Ml IV 100 mls/hr .Q10H LAQUITA Administration Oxycodone HCl 5 mg 12/16/24 03:28 12/16/24 04:01 Oxycodone 5 Mg Tablet PO 5 mg Q4H PRN Administration moderate pain 4-7 Discontinued Medications Generic Name Dose Route Start Last Admin Trade Name Freq PRN Reason Stop Dose Admin Sodium Chloride 1,000 mls @ 1,000 mls/hr 12/15/24 22:53 12/16/24 01:01 0.9 % Sodium Chloride 1000 Ml IV 12/15/24 23:52 Infused .Q1H ONE Infusion Ertapenem 1 gm/ Sodium 100 mls @ 200 mls/hr 12/16/24 01:03 12/16/24 01:53 Chloride IVPB 12/16/24 01:04 Infused ONCE ONE Infusion Ketorolac Tromethamine 30 mg 12/15/24 22:55 12/15/24 23:17 Ketorolac 30 Mg/Ml Inj IVP 12/15/24 22:56 30 mg ONCE ONE Administration Morphine Sulfate 4 mg 12/15/24 22:55 12/15/24 23:18 Morphine 4 Mg/Ml Inj IVP 12/15/24 22:56 4 mg ONCE ONE Administration Medical Decision Making MDM Narrative Medical decision making narrative: Considering recent hospitalization with diverticulitis, worsening of this or possible abscess formation would be leading in differential I think. Nephrolithiasis/ureteral colic as well. Maybe a urinary tract infection. ? Will place IV. She would like relief of her pain. Normal saline and morphine and ketorolac. Much improved but a little woozy from pain medication. Am reassured overall by vitals and abdominal exam however marked elevation in white count when had normalized prior. Now at nearly 16,000. Technique: CT through the abdomen and pelvis following 54 mL Isovue 370 IV contrast Comparison: CT abdomen pelvis performed 12/02/2022 Findings: Lower chest: Unchanged small peripheral right lower lobe nodule. No acute abnormality appreciated. Hepatobiliary: No significant parenchymal abnormality is appreciated. Spleen: Unremarkable. Pancreas: No acute abnormality appreciated. Adrenal glands: No acute abnormality appreciated. Kidneys: No significant parenchymal abnormality appreciated. No visualized calculi. No hydronephrosis. Bowel: No obstruction. Short segment of severe sigmoid colonic wall thickening and adjacent stranding associated with multiple inflamed appearing diverticula. The appendix is visualized and appears unremarkable. Vascular: No acute abnormality appreciated. Lymph nodes: No gross lymphadenopathy. Peritoneum: Small volume free fluid. No free air. No organized fluid collection. : There is a 2.5 centimeter rim enhancing irregular lesion arising from the right uterus. There is a 1.9 centimeter rim enhancing lesion within the left ovary/adnexa. Soft tissues: No acute abnormality appreciated. Bones: No acute fracture. No lytic or blastic lesion. Impression: 1. Acute uncomplicated sigmoid diverticulitis. Consider endoscopy following resolution of acute symptoms to ensure there is no underlying neoplasm. 2. Rim enhancing irregular foci arising from the right uterus and left ovary/adnexa. Suspect this represents a degenerating right uterine fibroid and a left corpus luteal cyst. If there is concern for acute pathology beyond diverticulitis, pelvic ultrasound could be considered. Otherwise, consider 6-12 week follow-up pelvic ultrasound. Discussed findings in CT with Ms. Severino and her partner. Discussed findings on CT with surgeon who actually cared for Ms. Severino with her last hospitalization. Considering failure outpatient, recommending admission and restarting IV antibiotics, ertapenem. Admitted to overnight hospitalist. Lab Data Labs: Lab Results 12/15/24 12/15/24 Range/Units 00:25 23:08 WBC 15.93 H (4.50-11.00) K/uL RBC 4.52 (4.00-5.20) m/uL Hgb 13.5 (12.0-16.0) gm/dL Hct 39.8 (33.0-51.0) % MCV 88 (80-100) fL MCH 30 (26-34) pg MCHC 34 (32-36) gm/dL RDW Coeff of René 12.1 (11.5-15.5) % Plt Count 354 (140-440) K/uL Neut % (Auto) 81.9 H (42.0-72.0) % Lymph % (Auto) 11.9 L (20-44) % [place] % (Auto) 5.5 (0.0-11.0) % Eos % (Auto) 0.3 (0.0-7.0) % Baso % (Auto) 0.2 (0.0-3.0) % Neut # (Auto) 13.00 H (1.7-7.0) K/uL Lymph # (Auto) 1.90 (0.90-2.90) K/uL [place] # (Auto) 0.90 (0.00-0.90) K/UL Eos # (Auto) 0.00 (0.00-0.50) K/uL Baso # (Auto) 0.00 (0.00-0.30) K/uL Abs Immat Gran (auto) 0.00 (0.00-0.30) K/uL Imm/Tot Granulo (auto) 0.2 % Sodium 135 (135-149) mmol/L Potassium 3.7 (3.6-5.1) mmol/L Chloride 98 (96-114) mmol/L Carbon Dioxide 26 (20-32) mmol/L Anion Gap 11 (7-15) mEq/L BUN 18 (5-24) mg/dL Creatinine 0.7 (0.5-1.5) mg/dL Estimated GFR 113 ml/min Glucose 96 (60-115) mg/dL Calcium 9.7 (8.4-10.6) mg/dL C-Reactive Protein 4.1 H (0.5-1.0) mg/dL Urine Color Yellow (Yellow) Urine Appearance Clear (Clear) Urine pH 6.0 (5.0-8.5) Ur Specific [place] 1.010 (1.000-1.030) Urine Protein Negative (Negative) Urine Glucose (UA) Negative (Negative) Urine Ketones Trace A (Negative) Urine Blood Trace-intact A (Negative) Urine Nitrite Negative (Negative) Urine Bilirubin Negative (Negative) Urine Urobilinogen 0.2 (0.2-1.0) Ur Leukocyte Esterase Negative (Negative) Discharge Plan Discharge Clinical Impression: Diverticulitis, Uterine fibroid, Ovarian cyst Patient Disposition: Admitted As Observation Discharge Location: [facility] Condition: Stable Activity Level: No Restrictions Discharge Diet: Regular
--- NOTE | 2024-12-15 22:53 | CRLHL7_ITS ---
For Patients: As a result of the Century Cures Act, medical imaging exams and procedure reports are released immediately into your electronic medical record. You may view this report before your referring provider. If you have questions, please contact your health care provider. Indication: Worsening lower abdominal pain, history of diverticulitis Technique: CT through the abdomen and pelvis following 54 mL Isovue 370 IV contrast Comparison: CT abdomen pelvis performed 12/02/2022 Findings: Lower chest: Unchanged small peripheral right lower lobe nodule. No acute abnormality appreciated. Hepatobiliary: No significant parenchymal abnormality is appreciated. Spleen: Unremarkable. Pancreas: No acute abnormality appreciated. Adrenal glands: No acute abnormality appreciated. Kidneys: No significant parenchymal abnormality appreciated. No visualized calculi. No hydronephrosis. Bowel: No obstruction. Short segment of severe sigmoid colonic wall thickening and adjacent stranding associated with multiple inflamed appearing diverticula. The appendix is visualized and appears unremarkable. Vascular: No acute abnormality appreciated. Lymph nodes: No gross lymphadenopathy. Peritoneum: Small volume free fluid. No free air. No organized fluid collection. : There is a 2.5 centimeter rim enhancing irregular lesion arising from the right uterus. There is a 1.9 centimeter rim enhancing lesion within the left ovary/adnexa. Soft tissues: No acute abnormality appreciated. Bones: No acute fracture. No lytic or blastic lesion. Impression: 1. Acute uncomplicated sigmoid diverticulitis. Consider endoscopy following resolution of acute symptoms to ensure there is no underlying neoplasm. 2. Rim enhancing irregular foci arising from the right uterus and left ovary/adnexa. Suspect this represents a degenerating right uterine fibroid and a left corpus luteal cyst. If there is concern for acute pathology beyond diverticulitis, pelvic ultrasound could be considered. Otherwise, consider 6-12 week follow-up pelvic ultrasound. Please note that all CT scans at this facility use dose modulation, iterative reconstruction, and/or weight-based dosing when appropriate to reduce radiation dose to as low as reasonably achievable. Dictated by Jackson Vera MD @ 12/15/2024 11:36:43 PM (Electronically Signed)
--- OUTSIDE RECORDS SUMMARY | 2024-12-15 23:00 | XMS_ITS | Clinical Summary ---
Author Organization [facility] Address [address] [place] [id number] Care Team Providers Care Street Engineer Name Role Phone Ana Maria Hair MD [...] on file Legal Sex Female 7:39 AM COLLET DRILLER Gender Identity Not on file Sexual Orientation [...] Procedure Name Priority Date/Time Associated Diagnosis Comments LAW RESEARCHER THIN PREP PAP SCREEN IMAGED Routine 08/08/2012 4:17 PM COLLET DRILLER Cervical cancer screening ANTI HIV 1/2 Routine 08/02/2012 2:31 PM COLLET DRILLER Supervision of other normal (HC) from Last 3 Months or Most Recently Relevant to Health Maintenance Results * LAW RESEARCHER THIN PREP PAP SCREEN IMAGED (08/08/2012 4:17 PM COLLET DRILLER) CYTOLOGY CYTOPATHOLOGY REPORT [facility] Status: Final Status [id number] CLINICAL INFORMATION Last Date of LMP :06/07/2012 Last Pap Date :08/12/2010 Last Pap Result :NIL ABN [place]/Bx Past 5 YRS :None Hormone Usage :None Menstrual Status : [place]/Bx done today :No Additional Information :None given [...] malignant lesions. COLLECTED:08/08/12 ACCESSIONED: 08/09/12 SIGNED: 08/10/12 [facility] PAP BETHESDA CODE NIL [facility] Tissue specimen (specimen) (Cervical/Vagina l) 08/08/2012 4:17 PM COLLET DRILLER 08/08/2012 4:12 PM COLLET DRILLER us Ana Maria Hair MD PATHOLOGY/CYTOLOGY Joann l Result [facility] INTERNAL ZIP [id number] [place] [phone] * ANTI HIV 1/2 (08/02/2012 2:31 PM COLLET DRILLER) ANTI HIV 1/2 Non-reacti ve [facility] Blood specimen (specimen) BLOOD SPECIMEN / Unknown 08/02/2012 2:31 PM COLLET DRILLER 08/02/2012 2:23 PM COLLET DRILLER us Heather Galaviz PHOTOGRAPHER MODEL SEND OUTS F inal Result [facility] INTERNAL ZIP [id number] [place] [phone] from Last 3 Months or Most Recently Relevant to Health Maintenance Care Teams Street Engineer Relationship Specialty Start Date End Date Ana Maria [place] [address] PCP - General 08/11/10
[2024-12-15 23:12] LABS: Basophils Percent Auto 0.2 % (0.0-3.0); Eosinophils Percent Auto 0.3 % (0.0-7.0); Hematocrit 39.8 % (33.0-51.0); Hemoglobin* 13.5 gm/dL (12.0-16.0); Immature Granulocytes Pct Auto 0.2 %; Lymphocytes Percent Auto 11.9 % (20-44); Mean Corpuscular HGB Conc 34 gm/dL (32-36); Mean Corpuscular Hemoglobin 30 pg (26-34); Mean Corpuscular Volume 88 fL (80-100); Monocytes Percent Auto 5.5 % (0.0-11.0); Neutrophils Percent Auto 81.9 % (42.0-72.0); Platelet Count* 354 K/uL (140-440); RDW Coefficient of Variation % 12.1 % (11.5-15.5); Red Blood Count 4.52 m/uL (4.00-5.20); White Blood Count* 15.93 K/uL (4.50-11.00)
[2024-12-15 23:13] LABS: Slide Review Reflex No
[2024-12-15] MEDS: KETOROLAC 30 MG/ML inj IVP (23:17)
[2024-12-15] MEDS: 0.9 % SODIUM CHLORIDE 1000 ml 1,000 ML IV (23:17)
[2024-12-15] MEDS: MORPHINE 4 MG/ML INJ IVP (23:18)
[2024-12-15 23:20] LABS: Chloride* 98 mmol/L (96-114); Potassium* 3.7 mmol/L (3.6-5.1); Sodium* 135 mmol/L (135-149)
[2024-12-15 23:23] LABS: Anion Gap 11 mEq/L (7-15); Blood Urea Nitrogen* 18 mg/dL (5-24); Carbon Dioxide* 26 mmol/L (20-32); Creatinine* 0.7 mg/dL (0.5-1.5); Estimated Glomerular Filt Rate 113 ml/min
[2024-12-15 23:24] LABS: Calcium* 9.7 mg/dL (8.4-10.6); Glucose* 96 mg/dL (60-115)
[2024-12-15 23:27] LABS: C Reactive Protein* 4.1 mg/dL (0.5-1.0)
[2024-12-16] VITALS (7 sets, daily range): BP systolic 90–113; BP diastolic 55–66; PULSE 68–83; RESP 16–18; TEMP 36.4–37; O2SAT 97–99; BMI 23.3
[2024-12-16 00:29] LABS: Appearance Urine Clear (Clear); Bilirubin Urine Negative (Negative); Blood Urine Trace-intact (Negative); Color Urine Yellow (Yellow); Glucose Urine Negative (Negative); Ketones Urine Trace (Negative); Leukocyte Esterase Urine Negative (Negative); Nitrite Urine Negative (Negative); Protein Urine Negative (Negative); Urobilinogen Urine 0.2 (0.2-1.0)
[2024-12-16] MEDS: ERTAPENEM 1 GM in 0.9 % SODIUM CHLORIDE Mini-bag 100 ML IVPB ×2 (01:29→22:16)
--- NOTE | 2024-12-16 03:38 | W.PM.TELEH&P ---
Telehealth- H&P: HPI History of Present Illness Date Seen: 12/16/24 Chief complaint: Abdominal pain Narrative: Fatoumata Brian is seen as an Interactive Telehealth visit. Fatoumata Brian is a 39 year old Female with past medical history significant for diverticulitis with perforation, previously treated with antibiotics, now presenting again with lower abdominal pain that started yesterday. Patient is Mongolian-speaking, a bedside interpreting nurse was used for translation. She has a known history of sigmoid diverticulitis. Her previous episode was in November [address] showed acute sigmoid diverticulitis with phlegmon or less likely developing abscess. At that time she was initially plan to treat with ertapenem however she was switched to oral antibiotics when her midline infiltrated. Patient reports her pain went away after 3 days of antibiotics. She has not had further episodes since then. She does report having a colonoscopy about 2 years ago. At this point we do not have results of the colonoscopy. Patient reports she started having abdominal pain last night around 3 AM. She also complains of nausea. She did have a bowel movement since the pain started. Denies any fever or chills. Complains of lower abdominal soreness. She has no other symptoms. Workup in the emergency department showed leukocytosis with white count of 15.9, hemoglobin 13.5, hematocrit 39.8, platelets 354. BMP showed sodium 135, potassium 3.7, chloride 98, CO2 26, BUN 18, creatinine 0.7, GFR 113, glucose 96, calcium 9.7. CRP 4.1. CT scan showed acute uncomplicated sigmoid diverticulitis. Consider endoscopy following resolution of acute symptoms to ensure there is no underlying neoplasm. There is also rim-enhancing irregular foci arising from the right uterus and left ovary or adnexa. Suspect this represents a D generating right uterine fibroid and a left corpus luteal cyst. If there is an concern for acute pathology be diverticulitis, pelvic ultrasound could be considered. Otherwise consider 6 to 12-week follow-up pelvic ultrasound. Review of Systems Status of ROS: Reports: 10 or more systems reviewed and unremarkable except as noted in History and below [facility] Medical History (Updated 12/16/24 @ 01:11 by Sae Hess MD) Hyponatremia ?E87.1 - Hypo-osmolality and hyponatremia (ICD-10) History of diverticulitis ?Z87.19 - Personal history of other diseases of the digestive system (ICD-10) Surgical History (Updated 12/01/22 @ 07:37 by Xiomy Turner MD) Delivery by section Social History What is your current living situation?: I presently have a place to live Problems where you live: no known problems Problems where you live details: n/a is caring for children during hospital stay In the past 12 months, utilities in danger of being shut off: no In past 12 months, lack of transportation kept you from medical appts, meetings, work, or getting things needed for daily living: no In the past 12 mos, have been you worried that your food would run out before you had money to buy more?: never true In the past 12 mos, the food you bought just didn't last and you didn't have money to buy more?: never true Highest level of school completed/degree received: 6th grade Smoking Status: Never smoker Do you use any of these nicotine containing products: None How often do you have a drink containing alcohol: 2-4 times a month Alcohol type: beer How often do you have six or more drinks on one occasion: Weekly AUDIT-C Alcohol total score: 5 Non-prescribed substance use: denies use Caffeine: Yes How often does anyone, including family, friends and others, physically hurt you: never How often does anyone, including family, friends and others, insult or talk down to you: never How often does anyone, including family, friends and others, threaten you with harm: never How often does anyone, including family, friends and others, scream or curse at you: never service: No Meds Home Medications and Allergies Home Medications ?Medication ?Instructions ?Recorded ?Confirmed ?Type acetaminophen 500 mg capsule 500 mg PO Q6H PRN 11/30/22 12/15/24 History Allergies Allergy/AdvReac Type Severity Reaction Status Date / Time No Known Drug Allergies Allergy Verified 12/15/24 22:26 Exam Narrative Exam Narrative: Physical Exam GENERAL: ?vital signs reviewed, well developed and nourished, in no distress HEENT: pupils are equal round and reactive to light, extraocular movements are grossly within normal limits and oral mucosa is moist. NECK: Supple without lymphadenopathy or thyromegaly according to nursing staff examination observation HEART: Regular rate and rhythm without any rubs, murmurs, or gallops. LUNGS: Clear to auscultation bilaterally with good air movement throughout ABDOMEN: + left abdominal swelling and tenderness, normal bowel sounds in all 4 quad. no distention. EXTREMITIES: Strength and sensation is observed to be grossly within normal limits in the upper and lower extremities.? No focal strength deficit is observed. SKIN:? Observed warm and dry with color normal Const Vital Signs, click to edit/add: Vital Signs - 24 hr 12/15/24 22:17 12/16/24 03:07 Temperature 98.6 F 98.6 F Pulse Rate [Pulse Oximeter] 77 72 Respiratory Rate 18 16 Blood Pressure [Right Arm] 113/66 Blood Pressure [Right Upper Arm] 112/73 Pulse Oximetry 98 99 Oxygen Delivery Method Room Air Room Air Hospitalist - H&P: Result Labs Labs: Short CBC 12/15/24 Range/Units 23:08 WBC 15.93 H (4.50-11.00) K/uL Hgb 13.5 (12.0-16.0) gm/dL Hct 39.8 (33.0-51.0) % Plt Count 354 (140-440) K/uL BMP 12/15/24 23:08 Sodium 135 Potassium 3.7 Chloride 98 Carbon Dioxide 26 BUN 18 Creatinine 0.7 Glucose 96 Calcium 9.7 Urine 12/15/24 Range/Units 00:25 Urine Color Yellow (Yellow) Urine Appearance Clear (Clear) Urine pH 6.0 (5.0-8.5) Ur Specific [place] 1.010 (1.000-1.030) Urine Protein Negative (Negative) Urine Glucose (UA) Negative (Negative) Assessment and Plan Assessment and plan (1) Diverticulitis: Status: Acute (2) Uterine fibroid: Status: Acute (3) Ovarian cyst: Status: Acute Plan Pt is a 39 y/o F with pmhx significant for sigmoid diverticulitis, previously with possible abscess and treated with IV ertapenem and po abx, now presenting to ED with lower abdominal pain and nausea. # Duodenal diverticulitis # Leukocytosis - this is recurrent. - CT with no evidence of perforation - cont with NPO, IV fluids, pain control and anti emetics. - General surgery eval in am. # Ovarian cyst - will get pelvic US # DVT proph - lovenox Total Time Spent Total Time Spent: 55 Telehealth: Statement Statement Telehealth Visit: Today's History and Physical is provided via interactive telehealth by Shruthi Duke MD.? Patient is located at [facility] Provider is located at [facility].? Nursing staff assisted with the patient's exam. The visit being done today meets criteria for a telehealth visit and the patient or patient?s parent/guardian is aware the visit is a telehealth visit. Camera Start Time: 03:30 Camera End Time: 03:45
[2024-12-16] MEDS: 0.9 % SODIUM CHLORIDE 1000 ml 1,000 ML 100 ML IV ×2 (04:00→13:43)
[2024-12-16] MEDS: PIPERACILLIN/TAZOBACTAM 3.375 GM in 0.9 % SODIUM CHLORIDE Mini-bag 100 ML IVPB ×2 (04:00→09:20)
[2024-12-16] MEDS: OXYCODONE 5 MG TABLET PO ×3 (04:01→15:09)
--- NOTE | 2024-12-16 05:40 | PC.NURSE ---
Patient arrived to M/S unit @0205 w/complaints of abdominal pain and mild nausea that started Wednesday AM. IVF, abx, and pain medications administered. Declined antiemetic. NPO. Independent in room.
[2024-12-16 07:57] LABS: Basophils Percent Auto 0.2 % (0.0-3.0); Eosinophils Percent Auto 0.2 % (0.0-7.0); Hematocrit 34.1 % (33.0-51.0); Hemoglobin* 11.5 gm/dL (12.0-16.0); Immature Granulocytes Pct Auto 0.2 %; Lymphocytes Percent Auto 11.5 % (20-44); Mean Corpuscular HGB Conc 34 gm/dL (32-36); Mean Corpuscular Hemoglobin 30 pg (26-34); Mean Corpuscular Volume 89 fL (80-100); Monocytes Percent Auto 5.1 % (0.0-11.0); Neutrophils Percent Auto 82.8 % (42.0-72.0); Platelet Count* 302 K/uL (140-440); RDW Coefficient of Variation % 12.2 % (11.5-15.5); Red Blood Count 3.82 m/uL (4.00-5.20); White Blood Count* 12.83 K/uL (4.50-11.00)
[2024-12-16 07:58] LABS: Slide Review Reflex No
[2024-12-16 08:20] LABS: Chloride* 105 mmol/L (96-114)
[2024-12-16 08:21] LABS: Albumin* 3.7 g/dL (3.3-5.0); Potassium* 4.1 mmol/L (3.6-5.1); Sodium* 134 mmol/L (135-149)
[2024-12-16 08:23] LABS: Blood Urea Nitrogen* 16 mg/dL (5-24); Creatinine* 0.6 mg/dL (0.5-1.5); Est. Creatinine Clearance* 101.32; Estimated Glomerular Filt Rate 118 ml/min
[2024-12-16 08:24] LABS: Alanine Aminotransferase* 59 U/L (4-35); Alkaline Phosphatase* 148 U/L (40-150); Anion Gap 5 mEq/L (7-15); Aspartate Amino Transferase* 33 U/L (12-35); Bilirubin Total* 1.2 mg/dL (0.1-1.5); Calcium* 8.4 mg/dL (8.4-10.6); Carbon Dioxide* 24 mmol/L (20-32); Glucose* 101 mg/dL (60-115); Total Protein* 6.3 g/dL (6.0-8.3)
[2024-12-16 08:27] LABS: C Reactive Protein* 7.2 mg/dL (0.5-1.0)
[2024-12-16] MEDS: SODIUM CHLORIDE 0.9 % (FLUSH) 10 ML SYRINGE 5 ML IVF (09:21)
--- NOTE | 2024-12-16 09:31 | PM.GSCN ---
History of Present Illness Consult details Date Seen: 12/16/24 Consult date: 12/16/24 Narrative: Patient presented to the hospital last night with left lower quadrant abdominal pain. The pain started about 12 hours before presentation. It came out of no where. She denies any associated nausea or vomiting. She had been having normal bowel movements and tolerating a regular diet prior to this. The pain is similar to her previous episode of diverticulitis, which was 2 years earlier. She did have a short hospital stay during that episode and was eventually discharged on oral antibiotics. Her last colonoscopy was 2 years ago and showed some moderate diverticular disease of the sigmoid colon, no other abnormalities. She denies any fever. She has never had abdominal surgery before. Patient was interviewed with the assistance of a phone baseball winder. On chart review it does appear that this is the 3rd episode of diverticulitis for this patient and her 2nd hospitalization. Review of Systems Status of ROS: Reports: 6 or more systems reviewed and unremarkable except as noted in History and below [facility] Medical History Hyponatremia ?E87.1 - Hypo-osmolality and hyponatremia (ICD-10) History of diverticulitis ?Z87.19 - Personal history of other diseases of the digestive system (ICD-10) Surgical History Delivery by section Social History What is your current living situation?: I presently have a place to live Problems where you live: no known problems Problems where you live details: n/a is caring for children during hospital stay In the past 12 months, utilities in danger of being shut off: no In past 12 months, lack of transportation kept you from medical appts, meetings, work, or getting things needed for daily living: no In the past 12 mos, have been you worried that your food would run out before you had money to buy more?: never true In the past 12 mos, the food you bought just didn't last and you didn't have money to buy more?: never true Highest level of school completed/degree received: 6th grade Smoking Status: Never smoker Do you use any of these nicotine containing products: None How often do you have a drink containing alcohol: 2-4 times a month Alcohol type: beer How often do you have six or more drinks on one occasion: Weekly AUDIT-C Alcohol total score: 5 Non-prescribed substance use: denies use Caffeine: Yes How often does anyone, including family, friends and others, physically hurt you: never How often does anyone, including family, friends and others, insult or talk down to you: never How often does anyone, including family, friends and others, threaten you with harm: never How often does anyone, including family, friends and others, scream or curse at you: never service: No Meds Home Medications and Allergies Home Medications ?Medication ?Instructions ?Recorded ?Confirmed ?Type acetaminophen 500 mg capsule 500 mg PO Q6H PRN 11/30/22 12/15/24 History Allergies Allergy/AdvReac Type Severity Reaction Status Date / Time No Known Drug Allergies Allergy Verified 12/15/24 22:26 Exam Narrative: Exam Narrative: General: Alert and oriented, nontoxic Respiratory: Equal breath rise bilaterally, maintained on room air CV: Well perfused Abdomen: Soft, tender to palpation and in left lower quadrant with some guarding, no rebound. Non peritoneal. Const: Vital Signs, click to edit/add: Vital Signs - 24 hr 12/15/24 22:17 12/16/24 03:07 Temperature 98.6 F 98.6 F Pulse Rate [Pulse Oximeter] 77 72 Respiratory Rate 18 16 Blood Pressure [Ri ght Arm] 113/66 Blood Pressure [Ri ght Upper Arm] 112/73 Pulse Oximetry 98 99 Oxygen Delivery Me thod Room Air Room Air Results Labs Labs: Abnormal lab results 12/15/24 12/15/24 12/16/24 Range/Units 00:25 23:08 07:52 WBC 15.93 H 12.83 H (4.50-11.00) K/uL RBC 3.82 L (4.00-5.20) m/uL Hgb 11.5 L (12.0-16.0) gm/dL Neut % (Auto) 81.9 H 82.8 H (42.0-72.0) % Lymph % (Auto) 11.9 L 11.5 L (20-44) % Neut # (Auto) 13.00 H 10.60 H (1.7-7.0) K/uL Sodium 134 L (135-149) mmol/L Anion Gap 5 L (7-15) mEq/L ALT 59 H (4-35) U/L C-Reactive Protein 4.1 H 7.2 H (0.5-1.0) mg/dL Urine Ketones Trace A (Negative) Urine Blood Trace-intact A (Negative) Diabetes panel 12/15/24 12/16/24 Range/Units 23:08 07:52 Sodium 135 134 L (135-149) mmol/L Potassium 3.7 4.1 (3.6-5.1) mmol/L Chloride 98 105 (96-114) mmol/L Carbon Dioxide 26 24 (20-32) mmol/L BUN 18 16 (5-24) mg/dL Creatinine 0.7 0.6 (0.5-1.5) mg/dL Glucose 96 101 (60-115) mg/dL Calcium 9.7 8.4 (8.4-10.6) mg/dL AST 33 (12-35) U/L ALT 59 H (4-35) U/L Alkaline Phosphatase 148 (40-150) U/L Total Protein 6.3 (6.0-8.3) g/dL Albumin 3.7 (3.3-5.0) g/dL Calcium panel 12/15/24 12/16/24 Range/Units 23:08 07:52 Calcium 9.7 8.4 (8.4-10.6) mg/dL Albumin 3.7 (3.3-5.0) g/dL Pituitary panel 12/15/24 12/16/24 Range/Units 23:08 07:52 Sodium 135 134 L (135-149) mmol/L Potassium 3.7 4.1 (3.6-5.1) mmol/L Chloride 98 105 (96-114) mmol/L Carbon Dioxide 26 24 (20-32) mmol/L BUN 18 16 (5-24) mg/dL Creatinine 0.7 0.6 (0.5-1.5) mg/dL Glucose 96 101 (60-115) mg/dL Calcium 9.7 8.4 (8.4-10.6) mg/dL Adrenal panel 12/15/24 12/16/24 Range/Units 23:08 07:52 Sodium 135 134 L (135-149) mmol/L Potassium 3.7 4.1 (3.6-5.1) mmol/L Chloride 98 105 (96-114) mmol/L Carbon Dioxide 26 24 (20-32) mmol/L BUN 18 16 (5-24) mg/dL Creatinine 0.7 0.6 (0.5-1.5) mg/dL Glucose 96 101 (60-115) mg/dL Calcium 9.7 8.4 (8.4-10.6) mg/dL Total Bilirubin 1.2 (0.1-1.5) mg/dL AST 33 (12-35) U/L ALT 59 H (4-35) U/L Alkaline Phosphatase 148 (40-150) U/L Total Protein 6.3 (6.0-8.3) g/dL Albumin 3.7 (3.3-5.0) g/dL All other labs normal. Progress Note:A&P Assessment and plan (1) Diverticulitis: Status: Acute Plan Patient is a 39-year-old female with now a 3rd episode of CT documented diverticulitis. Imaging demonstrates a short segment of severe sigmoid colonic wall thickening and associated stranding, this is the same area involved in her previous episodes. She has been started on IV ertapenem. Vital signs stable. She does have some tenderness and guarding in the left lower quadrant this morning. -continue clear liquids today -IV ertapenem -IV and p.o. pain meds as needed -encourage ambulation I did discuss with the patient her imaging findings and the hope that we can treat this acute episode medically with antibiotics. We reviewed that surgery is only indicated emergently for severe complications such as perforation and peritonitis. This would include an exploratory laparotomy, sigmoidectomy and likely an ostomy. I also reviewed with the patient that we she would be a good candidate for elective surgery after this hospitalization given her recurrent attacks, young age, multiple hospitalizations and imaging findings of severe diverticulitis on a short segment of the sigmoid colon. Elective surgery is typically pursued 10-12 weeks after an episode of acute diverticulitis and is something that we can discuss further on an outpatient basis. All questions and concerns were addressed with patient agreeing to the current plan.
--- NOTE | 2024-12-16 09:37 | PM.IMPN1 ---
Assessment and Plan Assessment and plan (1) Diverticulitis: Problem comment: - second occurrence, first in November 2022 (reassuring colonoscopy 03/2023) - IV Ertapenem, clears, advance diet pending clinical course - Dr. Lynn of General surgery following Status: Acute (2) Uterine fibroid: Problem comment: - possible incidental finding on 12/15 ultrasound, PCP f/u for pelvic ultrasound Status: Acute (3) Ovarian cyst: Problem comment: - per above Status: Acute Plan - per above (clears, IV Ertapenem, ADAT) - possibly home tomorrow pending clinical course Subjective Date Seen: 12/16/24 Interval history: Pau was admitted to the hospital overnight for sigmoid diverticulitis. This is her 2nd occurrence; was hospitalized 2 years ago (November of 2022) for the same. After last hospitalization, she had an unremarkable colonoscopy (03/2023, diverticulosis, no other findings, repeat in 10 years) [address] Valencia at the [facility] locally. Symptoms have been present for 2 days, primarily left lower quadrant, crampy. On IV Ertapenem, tolerating clears this morning. Reassuring VS, no other concerns for hospitalist this morning. Exam Narrative: Exam Narrative: GEN: Alert and oriented, nontoxic HEENT: EOMIs bilaterally, no scleral icterus CV: RRR, No concerning murmurs R: LCTA bilaterally without concerning wheezing Ab: Soft with mild distension, + LLQ ttp Ext: wwp, no concerning edema Skin: No concerning skin lesions or rashes on exposed skin Neuro: Nonfocal Psych: Appropriate Const: Vital Signs, click to edit/add: Vital Signs - 24 hr 12/15/24 22:17 12/16/24 03:07 Temperature 98.6 F 98.6 F Pulse Rate [Pulse Oximeter] 77 72 Respiratory Rate 18 16 Blood Pressure [Ri ght Arm] 113/66 Blood Pressure [Ri ght Upper Arm] 112/73 Pulse Oximetry 98 99 Oxygen Delivery Me thod Room Air Room Air Labs Labs: Laboratory Results - last 24 hr 12/15/24 12/15/24 12/16/24 00:25 23:08 07:52 WBC 15.93 H 12.83 H RBC 4.52 3.82 L Hgb 13.5 11.5 L Hct 39.8 34.1 MCV 88 89 MCH 30 30 MCHC 34 34 RDW Coeff of René 12.1 12.2 Plt Count 354 302 Neut % (Auto) 81.9 H 82.8 H Lymph % (Auto) 11.9 L 11.5 L [place] % (Auto) 5.5 5.1 Eos % (Auto) 0.3 0.2 Baso % (Auto) 0.2 0.2 Neut # (Auto) 13.00 H 10.60 H Lymph # (Auto) 1.90 1.50 [place] # (Auto) 0.90 0.70 Eos # (Auto) 0.00 0.00 Baso # (Auto) 0.00 0.00 Abs Immat Gran (auto) 0.00 0.00 Imm/Tot Granulo (auto) 0.2 0.2 Sodium 135 134 L Potassium 3.7 4.1 Chloride 98 105 Carbon Dioxide 26 24 Anion Gap 11 5 L BUN 18 16 Creatinine 0.7 0.6 Estimated Creat Clear 101.32 Estimated GFR 113 118 Glucose 96 101 Calcium 9.7 8.4 Total Bilirubin 1.2 AST 33 ALT 59 H Alkaline Phosphatase 148 C-Reactive Protein 4.1 H 7.2 H Total Protein 6.3 Albumin 3.7 Urine Color Yellow Urine Appearance Clear Urine pH 6.0 Ur Specific [place] 1.010 Urine Protein Negative Urine Glucose (UA) Negative Urine Ketones Trace A Urine Blood Trace-intact A Urine Nitrite Negative Urine Bilirubin Negative Urine Urobilinogen 0.2 Ur Leukocyte Esterase Negative
--- NOTE | 2024-12-16 16:23 | PC.NURSE ---
Patient was not able to tolerate diet at lunch( She had a jello). The patient vomited after eating. RN was unabel to assess emesis as patient did not use emesisi bag. Patient had already flushed emesis. Patient reported feeling nauseous with oral intake except water. MD was notified.
[2024-12-16 16:43] LABS: RBC Urine 0-2 (0-2); Squamous Epithelial Cell Urine Few (None-Few); WBC Urine 0-2 (0-5)
[2024-12-16] MEDS: ONDANSETRON 2 MG/ML inj 4 MG IVP (18:33)
[2024-12-16] MEDS: HEPARIN 5,000 UNIT/0.5 ML INJ 5000 UNIT SUBCUT (19:48)
[2024-12-16] MEDS: HYDROmorphone 0.5 mg/0.5 ml inj 0.4 MG IVP (22:36)
--- NOTE | 2024-12-16 23:03 | PC.NURSE ---
Patient alert and oriented x4. Policy Officer used for assessment. Patient did not tolerate Jello she had at dinner time. She reported nausea and emesis. PRN zofran given MD was notified. Advised patient to have popsicle. Patient tolerated popsicle with no reports of nausea or emesis Patient continues to complain of abdominal pain intermittently which is being effectively managed by PRN medication. Other vital signs stable.
[2024-12-17] MEDS: OXYCODONE 5 MG TABLET PO ×2 (02:20→08:39)
[2024-12-17 03:00] VITALS: BP 102/61; PULSE 70; RESP 18; TEMP 36.7; O2SAT 97
[2024-12-17] MEDS: 0.9 % SODIUM CHLORIDE 1000 ml 1,000 ML 100 ML IV (04:28)
--- NOTE | 2024-12-17 06:05 | PC.NURSE ---
Shift note: Patient is alert and oriented. Endorsed lower abdominal tenderness. Requested for pain medication at 0220 for pain level rated at 6/10. Oxycodone 5mg given and was effective.Patient is independent in room. community educator service provided through Ipad video. Vitally stable.
[2024-12-17 07:00] VITALS: BP 94/61; RESP 16; O2SAT 100
[2024-12-17 08:14] LABS: Basophils Absolute Auto 0.01 K/uL (0.00-0.30); Basophils Percent Auto 0.1 % (0.0-3.0); Eosinophils Absolute Auto 0.07 K/uL (0.00-0.50); Eosinophils Percent Auto 0.8 % (0.0-7.0); Hematocrit 32.7 % (33.0-51.0); Hemoglobin* 10.9 gm/dL (12.0-16.0); Immature Granulocytes Abs Auto 0.09 K/uL (0.00-0.30); Lymphocytes Absolute Auto 2.56 K/uL (0.90-2.90); Lymphocytes Percent Auto 27.4 % (20-44); Mean Corpuscular HGB Conc 33 gm/dL (32-36); Mean Corpuscular Hemoglobin 30 pg (26-34); Mean Corpuscular Volume 91 fL (80-100); Monocytes Percent Auto 5.6 % (0.0-11.0); Neutrophils Absolute Auto 6.08 K/uL (1.7-7.0); Neutrophils Percent Auto 65.1 % (42.0-72.0); Platelet Count* 284 K/uL (140-440); RDW Coefficient of Variation % 12.5 % (11.5-15.5); White Blood Count* 9.33 K/uL (4.50-11.00)
[2024-12-17 08:24] LABS: Slide Review Reflex No
[2024-12-17 08:38] LABS: Albumin* 3.3 g/dL (3.3-5.0); Chloride* 106 mmol/L (96-114); Potassium* 3.5 mmol/L (3.6-5.1); Sodium* 135 mmol/L (135-149)
[2024-12-17 08:41] LABS: Alanine Aminotransferase* 39 U/L (4-35); Alkaline Phosphatase* 125 U/L (40-150); Anion Gap 8 mEq/L (7-15); Aspartate Amino Transferase* 22 U/L (12-35); Bilirubin Total* 0.5 mg/dL (0.1-1.5); Blood Urea Nitrogen* 9 mg/dL (5-24); Carbon Dioxide* 21 mmol/L (20-32); Creatinine* 0.6 mg/dL (0.5-1.5); Est. Creatinine Clearance* 101.37; Estimated Glomerular Filt Rate 118 ml/min; Total Protein* 5.8 g/dL (6.0-8.3)
[2024-12-17 08:42] LABS: Calcium* 7.7 mg/dL (8.4-10.6); Glucose* 68 mg/dL (60-115)
[2024-12-17 08:44] LABS: C Reactive Protein* 7.6 mg/dL (0.5-1.0)
--- NOTE | 2024-12-17 10:26 | P.GSPN_ITS ---
Subjective Subjective Date Seen: 12/17/24 Interval history: Patient reports improvement in her pain. She did have some vomiting with Jell- O, but has been tolerating clear liquids without difficulty and feels like advancing her diet. She does have an appetite. Denies any current nausea. Exam Narrative: Exam Narrative: General: Alert and oriented, nontoxic in no acute distress Abdomen: Soft, some mild tenderness in left lower quadrant. No guarding or rebound. Const: Vital Signs, click to edit/add: Vital Signs - 24 hr 12/16/24 11:26 12/16/24 15:00 12/16/24 15:03 Temperature 98.3 F 98.4 F Pulse Rate [Pulse Oximeter] 83 77 77 Respiratory Rate 17 18 18 Blood Pressure [Ri ght Arm] 92/55 L 90/55 L Pulse Oximetry 98 98 Oxygen Delivery Me thod Room Air Room Air 12/16/24 19:00 12/16/24 23:00 12/16/24 23:00 Temperature 98.2 F 97.5 F L Pulse Rate [Pulse Oximeter] 77 68 68 Respiratory Rate 17 17 18 Blood Pressure [Ri ght Arm] 95/60 101/63 Pulse Oximetry 98 98 Oxygen Delivery Me thod Room Air Room Air 12/17/24 03:00 12/17/24 07:00 Temperature 98.1 F Pulse Rate [Pulse Oximeter] 70 Respiratory Rate 18 16 Blood Pressure [Ri ght Arm] 102/61 94/61 Pulse Oximetry 97 100 Oxygen Delivery Tx thod Room Air Room Air Labs/Imaging Labs Labs: No leukocytosis.CRP is stable ( 7.2--7.6) Imaging Imaging: no new imaging Progress Note:A&P Assessment and plan (1) Diverticulitis: Status: Acute Plan Patient is a 39-year-old female with now a 3rd episode of CT documented diverticulitis. Imaging demonstrates a short segment of severe sigmoid colonic wall thickening and associated stranding, this is the same area involved in her previous episodes. vital signs stable overnight, afebrile. Leukocytosis has resolved. CRP is stable. Her abdominal exam is improved for me this morning with patient requesting advancement of her diet. Okay to transition to an oral antibiotic. Would recommend a 10-14 day course. Anticipate discharge later today. Patient should follow-up with me in clinic in the next 1-2 weeks.
--- NOTE | 2024-12-17 11:01 | PM.DS1 ---
DS: Providers Provider Date Seen: 12/17/24 Date of admission: 12/16/24 02:00 Primary care physician: Ana Maria Hair MD Admitting Clinician: Shruthi Duke MD Consults: SW, General Surgery Attending Physician on discharge: Farida Burnham MD Date of Discharge: 12/17/24 DS: Diagnosis Discharge Diagnosis (1) Diverticulitis: Status: Acute Problem details: - second occurrence, first in November 2022 (reassuring colonoscopy 03/2023) - IV Ertapenem, clears, advanced diet during stay - Dr. Lynn of General surgery followed during stay, will follow as an outpatient; no inpatient surgical needs identified (2) Uterine fibroid: Status: Acute Problem details: - possible incidental finding on 12/15 ultrasound, PCP f/u to discuss pelvic ultrasound (3) Ovarian cyst: Status: Acute Problem details: - per above DS: Summary Hospital Course Hospital Course: Pau was admitted to the hospital on 12/16 for sigmoid diverticulitis. This is her 2nd episode of diverticulitis; was hospitalized 2 years ago (November of 2022) for the same. After last hospitalization, she had an unremarkable colonoscopy (03/2023, diverticulosis, no other findings, repeat in 10 [address]) [address] Valencia at the [facility] locally. Symptoms present for 2 days prior to admission, primarily left lower quadrant, crampy. Treated with IV Ertapenem and improved both subjectively and objectively during stay. Advanced diet and was ready for d/c home on oral Augmentin with outpatient PCP and General Surgery f/u on 12/17/24. Status at Discharge Functional status at discharge: independent ambulation Overall status at discharge: patient is progressing back to baseline Time Spent with Patient Time attestation: Total time spent providing and/or coordinating discharge services: Time spent: Greater than 30 minutes Exam Narrative: Exam Narrative: GEN: Alert and oriented, nontoxic HEENT: EOMIs bilaterally, no scleral icterus CV: RRR, No concerning murmurs R: LCTA bilaterally without concerning wheezing Ab: Soft and tolerates palpation, mild discomfort LLQ but improved Ext: wwp, no concerning edema Skin: No concerning skin lesions or rashes on exposed skin Neuro: Nonfocal Psych: Appropriate Const: Vital Signs, click to edit/add: Vital Signs - 24 hr 12/16/24 11:26 12/16/24 15:00 12/16/24 15:03 Temperature 98.3 F 98.4 F Pulse Rate [Pulse Oximeter] 83 77 77 Respiratory Rate 17 18 18 Blood Pressure [Ri ght Arm] 92/55 L 90/55 L Pulse Oximetry 98 98 Oxygen Delivery Me thod Room Air Room Air 12/16/24 19:00 12/16/24 23:00 12/16/24 23:00 Temperature 98.2 F 97.5 F L Pulse Rate [Pulse Oximeter] 77 68 68 Respiratory Rate 17 17 18 Blood Pressure [Ri ght Arm] 95/60 101/63 Pulse Oximetry 98 98 Oxygen Delivery Me thod Room Air Room Air 12/17/24 03:00 12/17/24 07:00 Temperature 98.1 F Pulse Rate [Pulse Oximeter] 70 Respiratory Rate 18 16 Blood Pressure [Ri ght Arm] 102/61 94/61 Pulse Oximetry 97 100 Oxygen Delivery Me thod Room Air Room Air DS: Data Data Completed and Pending Completed studies during hospitalization: Procedures Insertion of Infusion Device into Upper Vein, Percutaneous Approach (12/01/22) Labs on day of discharge: Labs from last 24 hours 12/17/24 12/15/24 08:00 00:25 WBC 9.33 RBC 3.60 L Hgb 10.9 L Hct 32.7 L MCV 91 MCH 30 MCHC 33 RDW Coeff of René 12.5 Plt Count 284 Neut % (Auto) 65.1 Lymph % (Auto) 27.4 [place] % (Auto) 5.6 Eos % (Auto) 0.8 Baso % (Auto) 0.1 Neut # (Auto) 6.08 Lymph # (Auto) 2.56 [place] # (Auto) 0.50 Eos # (Auto) 0.07 Baso # (Auto) 0.01 Abs Immat Gran (auto) 0.09 Imm/Tot Granulo (auto) 1.0 Sodium 135 Potassium 3.5 L Chloride 106 Carbon Dioxide 21 Anion Gap 8 BUN 9 Creatinine 0.6 Estimated Creat Clear 101.37 Estimated GFR 118 Glucose 68 Calcium 7.7 L Total Bilirubin 0.5 AST 22 ALT 39 H Alkaline Phosphatase 125 C-Reactive Protein 7.6 H Total Protein 5.8 L Albumin 3.3 Urine Color Yellow Urine Appearance Clear Urine pH 6.0 Ur Specific [place] 1.010 Urine Protein Negative Urine Glucose (UA) Negative Urine Ketones Trace A Urine Blood Trace-intact A Urine Nitrite Negative Urine Bilirubin Negative Urine Urobilinogen 0.2 Ur Leukocyte Esterase Negative Urine RBC 0-2 Urine WBC 0-2 Ur Squamous Epith Cells Few Urine Bacteria None Discharge Plan Discharge Disposition: Home, Self-Care Date of Admission: 12/16/24 02:00 Attending Provider on Discharge: Farida Burnham Consulting Providers: Nani Lynn; Damaris Hollis; Christina Rivers Primary Care Provider: Ana Maria Hair Condition: Improved Anticipated Discharge Date/Time: 12/17/24 10:56 Discharge Medications: New amoxicillin-pot clavulanate 875-125 mg tablet 1 tab PO BID 10 Days Qty: 20 0RF Continued acetaminophen 500 mg capsule 500 mg PO Q6H PRN Lactobacillus acidophilus 0.5 mg (100 million cell) Tablet 100 mmu cells PO TIDWM Qty: 90 0RF Discharge Orders: Discharge Order (Routine); Ordered 12/17/24 Ordered By: Farida Burnham Patient Education: Amoxicillin/Clavulanate Potassium (By mouth), Diverticulitis (DC) Additional Instructions: Soft, bland diet for the next few days. Take antibiotics twice per day with food (these were sent to [facility]). See Dr. Hair and Dr. Lynn as scheduled for followup. You had a cyst on your ovary that may need an ultrasound to evaluate further. Dieta blanda y blanda para los pr?ximos d?as. [place] antibi?ticos dos veces al d?a con alimentos (estos se enviaron a [facility]). Consulte al Dr. Hair y al Dr. Lynn seg?n lo programado para el seguimiento. Ten?a un quiste en el ovario que puede necesitar renato ecograf?a para evaluarlo m?s a fondo. Activity Level: No Restrictions Discharge Diet: Low Fiber Diet Detail: soft/bland, slowly advance as tolerated Follow Up Appointments: Nani Lynn MD [Staff Physician] - (Call Wednesday to make appointment at [facility] in 1-2 weeks for posthospital visit.) Ana Maria Hair MD [Primary Care Provider] - 12/27/24 11:25 am ( ) Forms: MyHealth Info Instructions Discharge Comments: Follow-up with Dr. Lynn in 1-2 weeks. Please call if you are experiencing severe pain, nausea, vomiting, difficulty urinating, fever or not had a bowel movement in 4 days after surgery.
[2024-12-17 11:45] VITALS: BP 112/71; PULSE 67; RESP 16; TEMP 36.8; O2SAT 96
[2024-12-17] MEDS: ACETAMINOPHEN 325 MG TABLET 650 MG PO (11:49)
--- NOTE | 2024-12-17 16:15 | PC.NURSE ---
The patient ambulated off the unit this afternoon, pain is well managed with PRN medication, advanced to a regular diet with no issues of N/V this afternoon. All discharge instructions were reviewed with a video circus artist. All belongings were sent with the patient. Kendra CATHERINE BSN
== END 2024-12-17 14:30 | disposition home or self-care (01) ==
LOC: ED 12-16 01:11 → MEDSURG 12-16 02:01
PROVIDERS: Family Medicine; Admitting Provider Internal Medicine; Emergency Provider Family Medicine; PCP Family Medicine; Visit Provider Internal Medicine
DX: K57.92 Diverticulitis of intestine, part unspecified, without perforation or abscess without bleeding (principal); D25.9 Leiomyoma of uterus, unspecified; N83.209 Unspecified ovarian cyst, unspecified side; D72.829 Elevated white blood cell count, unspecified; R11.0 Nausea; R10.31 Right lower quadrant pain; Z87.19 Personal history of other diseases of the digestive system
CPT/HCPCS: 36415; 74177; 80048; 80053; 81001; 85025; 86140; 93005; 96361; 96365; 96367; 96372; 96375; 99284; 99285; A9270; G0378; J1171; J1335; J1644; J1885; J2270; J2405; J2543; J7030; Q9967